=== PATIENT | male | born 1960 | race Caucasian/White ===

== ENCOUNTER → 2016-12-22 | Outpatient (CLI) | payer BC ==
[~2016-12-22] MED LIST: AMO500 PO; ASPI-781 PO; GABA100C14 PO; HYDR-902 PO; NOVO3I SC; NOVOLOG INSULIN PUMP SQ
--- NOTE | 2016-12-28 22:05 | HKNOTE ---
DATE OF SERVICE: 12/22/2016 The patient comes for preoperative evaluation. He is scheduled to have a right knee replacement on 12/23/2016. He has been cleared for surgery by Dr. Garett Waddell. I spoke with Dr. Waddell on t he phone today about him. He has not given any blood for autotransfusion. He understands the risks associated with using hospital blood. He is agreeable to using hospital blood if needed. Numerous questions were asked and answered. He has read my booklet on knee arthritis and knee replacement s urgery. He comes in with his . Dictated By: MICHELE CHAVEZ/NTS Conf#: [id number] DID#: [id number]
== END | disposition home or self-care (01) ==
LOC: HKI 13:27
DX: M25.561 Pain in right knee (principal); M17.11 Unilateral primary osteoarthritis, right knee
CPT/HCPCS: G0463

== ENCOUNTER 2016-12-23 05:54 | Inpatient (IN) | payer BC ==
[2016-12-22 10:40] VITALS: BMI 27.5
[2016-12-23] VITALS (32 sets, daily range): BP systolic 98–147; BP diastolic 55–90; PULSE 72–90; RESP 10–22; Ht 182.9 cm; Wt 92.3 kg
[~2016-12-23] VITALS: Ht 182.9 cm; Wt 92.3 kg
[2016-12-23] MEDS ORDERED: LANSOPRAZOLE 30 MG CAP PO ONE (06:00)
[2016-12-23] MEDS ORDERED: KNEE PAIN COCKTAIL VANCO INJ SCH ×6 (06:00)
[2016-12-23] MEDS ORDERED: ACETAMINOPHEN 1000MG/100ML IV 100 ML IVPB ONE (06:00)
[2016-12-23] MEDS ORDERED: TRANEXAMIC ACID IVPB ONE (06:00)
[2016-12-23] MEDS ORDERED: oxyCODONE (CR) 10 MG TAB [oxyCONTIN] PO ONE (06:00)
[2016-12-23] MEDS ORDERED: SOD CHLORIDE 0.9% IVPB ONE (06:00)
[2016-12-23] MEDS ORDERED: DEXAMETHASONE 4 MG/ML 1 ML INJ IV ONE (06:00)
[2016-12-23] MEDS ORDERED: LACTATED RINGER'S 1,000 ML IV* SCH (06:00)
[2016-12-23] MEDS ORDERED: VANCOMYCIN 1 GM (PMX) 250 ML IVPB ONE (06:00)
[2016-12-23] MEDS ORDERED: CELECOXIB 200 MG CAP PO ONE (06:00)
[2016-12-23] MEDS ORDERED: ONDANSETRON 4 MG INJ IV ONE (06:00)
--- NOTE | 2016-12-23 06:42 | HPN ---
Date/Time of Note Date/Time of Note DATE: 12/23/16 TIME: 06:42 Interval H&P Admission Note Pt. seen H&P reviewed: No system changes JANINA CONTEH PA-C Dec 23, 2016 06:42
[2016-12-23] MEDS ORDERED: NOVOLOG INSULIN PUMP SQ (06:49)
[2016-12-23] MEDS ORDERED: ROCURONIUM 50 MG INJ ONE ×2 (07:00→07:26)
[2016-12-23] MEDS ORDERED: BUPIVACAINE 0.25%/EPI (SDV) 30 ML INJ ONE (07:07)
[2016-12-23] MEDS ORDERED: METHYLENE BLUE 1% 10 ML INJ ONE (07:07)
[2016-12-23] MEDS ORDERED: POLYMYXIN B 500000 UNIT INJ ONE (07:07)
[2016-12-23] MEDS ORDERED: MIDAZOLAM 1 MG/ML 2 ML INJ ONE ×2 (07:08)
[2016-12-23] MEDS ORDERED: TOBRAMYCIN 1.2 GM POWDER ONE (07:08)
[2016-12-23] MEDS ORDERED: VANCOMYCIN 1 GM INJ ONE (07:08)
[2016-12-23] MEDS ORDERED: ROPIVACAINE 0.2% 100 ML ONE (07:08)
[2016-12-23] MEDS ORDERED: PROPOFOL 100 ML ONE (07:26)
[2016-12-23] MEDS ORDERED: ROPIVACAINE 0.5 % 30 ML VIAL ONE (07:26)
[2016-12-23] MEDS ORDERED: SOD CHLORIDE 0.9% IRR SCH ×2 (07:30)
[2016-12-23] MEDS ORDERED: TRANEXAMIC ACID IRR SCH ×2 (07:30)
[2016-12-23] MEDS ORDERED: PHENYLephrine (100 MCG/ML) 5ML SYG ONE (07:54)
[2016-12-23] MEDS ORDERED: BACITRACIN 50000 UNITS INJ IRR ONE (08:48)
[2016-12-23] MEDS ORDERED: DEXAMETHASONE 4 MG/ML 1 ML INJ ONE (10:03)
[2016-12-23] MEDS ORDERED: KETOROLAC 30 MG INJ ONE (10:03)
[2016-12-23] MEDS ORDERED: METOCLOPRAMIDE 10 MG INJ ONE (10:03)
[2016-12-23] MEDS ORDERED: ONDANSETRON 4 MG INJ ONE (10:03)
[2016-12-23] MEDS ORDERED: FAMOTIDINE 20 MG INJ ONE (10:04)
[2016-12-23] MEDS ORDERED: MEPERIDINE 25 MG INJ IV PRN (10:30)
[2016-12-23] MEDS ORDERED: LABETALOL HCL 20MG INJ IV PRN (10:30)
[2016-12-23] MEDS ORDERED: EPHEDrine SULFATE 50 MG/5 ML SYG IV PRN (10:30)
[2016-12-23] MEDS ORDERED: morphine (1 MG/ML) 10ML SYRINGE IV PRN ×3 (10:30)
[2016-12-23] MEDS ORDERED: hydrALAzine 20 MG INJ IV PRN (10:30)
[2016-12-23] MEDS ORDERED: METOCLOPRAMIDE 10 MG INJ IV PRN (10:30)
[2016-12-23] MEDS ORDERED: ONDANSETRON 4 MG INJ IV PRN (10:30)
[2016-12-23] MEDS ORDERED: ALBUMIN HUMAN 5% 250 ML IV PRN (10:30)
[2016-12-23] MEDS ORDERED: DIPHENHYDRAMINE 50 MG INJ IV PRN (10:30)
[2016-12-23] MEDS ORDERED: HYDROmorphONE (0.2 MG/ML) 10ML SYG IV PRN ×3 (10:30)
[2016-12-23] MEDS ORDERED: NEOSTIGMINE 3 MG/3 ML SYRINGE ONE (10:43)
[2016-12-23] MEDS ORDERED: GLYCOPYRROLATE 0.4 MG INJ ONE (10:43)
[2016-12-23] MEDS: DEXTROSE 5%-LR 1,000 ML IV SCH ×2 (11:19→23:49)
[2016-12-23] MEDS ORDERED: MEPERIDINE 10 MG/ML 30 ML PCA IV PRN (11:30)
[2016-12-23] MEDS: ACETAMINOPHEN 1000MG/100ML IV 100 ML IVPB SCH ×2 (11:30→19:54)
[2016-12-23] MEDS ORDERED: NALOXONE (0.4 MG/ML) INJ IV PRN (11:30)
[2016-12-23] MEDS ORDERED: NA PHOSPHATE/BIPHOS 133 ML ENEMA PR PRN (11:30)
[2016-12-23] MEDS ORDERED: BETHANECHOL 25 MG TAB PO PRN (11:30)
[2016-12-23] MEDS ORDERED: DIPHENHYDRAMINE 50 MG INJ IM PRN (11:30)
[2016-12-23] MEDS ORDERED: oxyCODONE 5 MG TAB PO PRN (11:30)
[2016-12-23] MEDS ORDERED: SENNA/DOCUSATE NA (8.6MG/50MG) TAB PO PRN (11:30)
[2016-12-23] MEDS ORDERED: MAGNESIUM HYDROXIDE 30ML CUP PO PRN (11:30)
[2016-12-23] MEDS: ONDANSETRON 4 MG INJ IV SCH ×2 (11:30→18:23)
[2016-12-23] MEDS ORDERED: DOCUSATE SODIUM 100 MG CAP PO ONE (11:30)
[2016-12-23] MEDS ORDERED: COUMADIN NOTE XX SCH (11:30)
[2016-12-23] MEDS ORDERED: BISACODYL 10 MG SUPP PR PRN (11:30)
[2016-12-23] MEDS ORDERED: ASPIRIN (EC) 325 MG TAB PO ONE (11:30)
[2016-12-23] MEDS ORDERED: HYDROmorphONE 0.2 MG/ML PCA IV PRN (11:30)
[2016-12-23] MEDS ORDERED: BACITRACIN 50000 UNITS INJ ONE (11:52)
[2016-12-23] MEDS: CEFAZOLIN 1 GM/50 ML (PMX) 50 ML IVPB SCH ×2 (12:30→19:08)
--- NOTE | 2016-12-23 12:43 | OPR ---
DATE OF OPERATION: 12/23/2016 DATE OF OPERATION: November 23, 2015 SURGEON: Herbert. Fatoumata MD CYBER SYSTEMS ADMINISTRATOR: Scottie Calvin ANESTHESIOLOGIST: PREOPERATIVE DIAGNOSIS: Exceedingly severe degenerative osteoarthritis of the right knee. POSTOPERATIVE DIAGNOSIS: Exceedingly severe degenerative osteoarthritis of the right knee. OPERATION PERFORMED: Total knee replacement (arthroplasty of the knee, condylar plateau, medial and lateral compartments with patella resurfacing, CPT 61216). FINDINGS AT SURGERY: The patient was found to have exceedingly severe degenerative osteoarthritis o f the right knee, far more severe than the x-rays seemed to indicate. There were huge peripheral os teophytes around the entire distal femur and the intercondylar notch was virtually overgrown with os teophytes. Intraoperative photographs were taken to show the extent of the arthritis. The patient's bone quality was extremely good. JUSTIFICATION FOR SURGERY: The knee was found to have end-stage osteoarthritis. The patient is a v vineet active 56-year-old male whose lifestyle is markedly affected by the arthritic knee. An extensiv e course of conservative care has been tried prior to embarking on the knee replacement operation. There can be no reasonable expectation that any further conservative treatment will make any improve ment to this patient's pain level and lifestyle. The risks and complications of the surgery were di scussed with the patient at the preoperative visit as well as the risks and possible complications o f blood transfusion using hospital blood. The patient is agreeable to using hospital blood if neede d. DESCRIPTION OF PROCEDURE: The patient was given intravenous antibiotics 1 hour prior to surgery. A n epidural anesthetic was initiated in the ICU holding area. The patient was taken to the operating room and given a light general anesthetic. The leg, foot, and ankle were prepared and draped in th e usual sterile fashion. The center of the ankle was marked at the midpoint between the 2 malleoli with a sterile marking pen. A tourniquet around the thigh was inflated to 225 mmHg after the leg cheatham d been exsanguinated using an Esmarch bandage. The tourniquet was inflated at the initiation of pro cedure for a short period and was then again reinflated at the time of cementing the components part s. The total tourniquet time was approximately 50 minutes. A longitudinal incision was made over the anterior aspect of the knee. The incision extended from t he tibial tubercle to a point just above the patella. The medial capsule was exposed by sharp and b aiyana dissection, and was incised 1/4 inch medial to the patella. A marking stitch was set on each s sophia of the incision at the midpoint of the capsule so as to enable accurate reapproximation at the e nd of the operation. A vastus split was made in the vastus medialis extending from the superior nubia e of the patella for approximately 5 cm between the line with the muscle fibers. The ends of the mu scle split at the patella were marked with a marking stitch on each side for later accurate reapprox imation. The patella was reflected laterally and osteophytes around the rim of the patella were rem yessica. Osteophytes along the lateral femoral condyle were removed so as to facilitate lateral reflec tion of the patella. Posteromedial osteophytes were removed on the lateral side as well, so as to f ree up the lateral collateral ligament. Medial femoral osteophytes and posteromedial femoral osteop hytes were also removed at this time. This allowed for the knee to be brought into a more normal al ignment. A segment of bone was cut from the articular surface of the patella using a caliper to det ermine the exact thickness to be removed. The remaining thickness of the patella was 18 mm. (Note that the femoral condyle was extremely hypoplastic, so we wanted to retain as much patella thickness as possible to maintain the anterior joint space.)The knee was flexed, and the patella was displace d laterally without eversion. Osteophytes in the femoral notch were removed. The remnants of the m edial and lateral menisci were excised and the cruciate ligaments were excised. The medial collater al ligament was elevated as an osteo-periosteal flap from the proximal tibia. The distal end of the medial collateral ligament remained attached to the tibia throughout the operation. The tibia was retracted forward with Hohmann retractor, inserted posterior to the midpoint of the proximal tibia. The tibial jig was set in place in such a way as to align longitudinally with the anterior tibial s pine, with the junction of the middle and medial 2/3 of the patella tendon, and with the posterior i ntercondylar eminence of the tibia. An AP and lateral x-ray was obtained with the alignment jig in place. This showed that the alignment was satisfactory after some slight adjustments were made. Th e posterior slope of the tibia was set at 6 degrees. The tibial cutting block was attached to the p roximal tibia with 2 Steinmann pins. An external alignment yoli was placed on the cutting block to c onfirm the alignment of the cutting block. An Tank Wing feeler gauge was now placed on the superio r aspect of the cutting block to further confirm the posterior slope of the tibia and the depth of t he cut to be made. An oscillating saw was used to remove an appropriate amount of bone from the pro ximal tibia with the healthy side being used to measure the cutting depth. The lateral femoral cond yle of the distal femur was measured to determine the appropriate size for the femoral component. T he anterior condyle of the femur was partially removed with a rongeur. A medium-sized cutting block was attached to the distal femur with 2 Steinmann pins through the pin holes in the block. The ext ernal alignment jig of this cutting block was lined up with the anterior surface of the femur and a central intercondylar hole for the intramedullary yoli was drilled through the hole in the alignment block. The block was removed. A long Waterpik nozzle was used to flush fat from the intramedullary canal. The appropriately sized cutting block was now attached to the femur by means of an intramed ullary yoli. The linking guide was inserted into the slot in the base of the femoral cutting block w ith the knee set at 90 degrees of flexion and with the linking guide set flush with the proximal tib ial cut in order to set the appropriate rotational alignment on the femoral cutting block. Ligament balance was checked at this point and was found to be very satisfactory. Once the rotational align ment had been determined, and the ligaments found to be balanced, the femoral cutting block was secu red to the distal femur with 2 Steinmann pins. The anterior and posterior cuts of the distal femur were made off the femoral cutting block. The cutting block was removed and a spacer block was used to measure the flexion gap which was found to be 15 mm. The same spacer block size without the femoral element was used with the leg in extension to determi ne the amount of distal femur to be removed in the transverse plane. A -degree distal cutting block was now set on the femoral intramedullary yoli, and the yoli was inserted into the intramedulla ry canal. The appropriate amount of bone to be removed was determined. The femoral cutting block w as pinned to the anterior surface of the femur with 2 Steinmann pins. The appropriate amount of bon e was resected off the distal femur to give an extension gap equal to the thickness of the flexion g ap. The cut needed to be repeated after initial cut in order to produce an extension gap the same s ize as the flexion gap. By using the appropriate cutting blocks, the rest of the femoral cuts were made. The femoral trial component was installed and was found to fit perfectly. The femoral trial component was removed. T he proximal tibia was sized, and the appropriate tibial tray selected. The central fixation hole in the tibia was made using the tibial tray template and the appropriate instruments. The femoral and tibial trials and the trial tibial insert were installed, and the patella was prepared to accept th e 35 mm patellar dome component. The trial components were all removed. The tourniquet was inflate d. Soft tissues around the knee, especially the posterior capsule, were injected with a mixture of Naropin, Toradol, morphine, and clonidine. The cut surfaces of the bones were cleaned with pulsatil e Water Jet lavage and thoroughly dried. Sclerotic bone surfaces were drilled with a 1/8-inch drill . The tibial trial component was installed with methyl methacrylate cement followed by the femoral component and finally the patellar component. Cement was used on all 3 components. The cement was finger packed into the cut surfaces of the bone and pressurized with a rubber dam in order to get go od interdigitation of the cement into the bone. A lateral x-ray of the knee was obtained with the [address] and this showed that the knee was in full extension. Once the cement was hard, all extraneous cement was removed. The cut edges of the medial capsule were held together at the m idpoint with a towel clip, and the knee was put through a full range of motion. The patella was fou nd to track satisfactorily. A lateral release was not required. At this point, the patella was fou nd to track very well in the patellar groove of the femoral component. The knee was frequently irrigated with normal saline containing antibiotics with pulsatile lavage th roughout the entire operation as a prophylactic measure against infection. Once the cement was hard , the tourniquet was released. Bleeding points were cauterized. The total tourniquet time was appr oximately 50 minutes. The patient's vital signs remained stable throughout the operation. The permanent rotating bearing was installed. Superficial and deep Hemovac drains were set in place . The wound was closed using interrupted Vicryl on the capsule with FiberWire used at strategic poi nts such as the attachment of the distal ends of the vastus medialis at the split, and the tibial te ndon was also attached to the osteo-periosteal flap with FiberWire. The rest of the medial capsule was closed with interrupted Vicryl. A subcuticular stitch was inserted and anny were used on the skin. The usual sterile dressings were applied. A Cas-Rose compression dressing was applied a fter a sterile cooling pad had been set in place against the deep tissues by sterile cast padding. The patient's condition at the end of the procedure was satisfactory. Vital signs remained stable t hroughout the operation. The patient returned to the recovery room in stable condition. X-rays wer e obtained in the recovery room. Calf pumps were applied to both legs in the operating room. There were no problems or complications as far as we know. The sponge and instrument counts were correct . COMPONENT INFORMATION: KNEE IMPLANT TYPE: LCS. FEMORAL COMPONENT SIZE: Osteonics plus. TIBIAL COMPONENT SIZE: 5 PATELLAR COMPONENT SIZE: 35 mm patellar dome. TIBIAL INSERT: 15 mm deep dish posterior stabilized . IMPLANT SENIOR PRODUCER: [employer] [place], [place]. TOTAL TOURNIQUET TIME: Approximately 50 minutes. TOTAL BLOOD LOSS: Approximately 150 mL. Dictated By: MICHELE CHAVEZ/THOMAS Conf#: [id number] DID#: [id number]
--- NOTE | 2016-12-23 13:07 | RADRPT ---
PROCEDURE: Intraoperative imaging of the right knee with fluoroscopy. CLINICAL INDICATION: Right knee pain. Intraoperative. TECHNIQUE: 2 images of the right knee were obtained in the operating room with an image intensifie r. No radiologist was in attendance. 3.8 seconds of fluoroscopy time was used. COMPARISON: Intraoperative imaging done earlier the same day. FINDINGS: Images demonstrate components of a total right knee arthroplasty. IMPRESSION: 1. Intraoperative imaging of the right knee. RPTAT: QQ .Denis Crowe MD, MD Date Time Electronically viewed and signed by .Denis Crowe MD, MD on 12/23/2016 13:07 .R/
--- NOTE | 2016-12-23 13:08 | RADRPT ---
PROCEDURE: Right knee radiograph. CLINICAL INDICATION: Right knee pain. Intraoperative. TECHNIQUE: Single lateral intraoperative image. COMPARISON: 04/01/2016. FINDINGS: There are components of a total right knee arthroplasty. IMPRESSION: 1. Satisfactory intraoperative imaging of the right knee. RPTAT: QQ .Denis Crowe MD, Date Time Electronically viewed and signed by .Denis Crowe MD, on 12/23/2016 13:08 .R/
--- NOTE | 2016-12-23 13:10 | RADRPT ---
PROCEDURE: Right knee radiographs. CLINICAL INDICATION: Right knee pain. Postop. TECHNIQUE: Two views. Frontal and lateral. COMPARISON: Intraoperative imaging done earlier the same day. FINDINGS: There is no fracture or dislocation. Anterior skin anny and surgical drains are noted. There is gas in the soft tissues from the rece nt surgery. There is a total right knee constrained arthroplasty which appears satisfactory. There is no lytic or blastic lesion. There is no joint effusion. IMPRESSION: 1. Satisfactory postoperative appearance of the right knee. RPTAT: QQ .Denis Crowe MD, MD Date Time Electronically viewed and signed by .Denis Crowe MD, MD on 12/23/2016 13:09 .R/
[2016-12-23] MEDS ORDERED: TRANEXAMIC ACID 920 MG in SOD CHLORIDE 0.9% 100 ML IVPB ONE ×2 (15:30→18:30)
[2016-12-23] MEDS ORDERED: INSULIN DETEMIR [LEVEMIR] 3ML CART SC SCH (17:25)
[2016-12-23] MEDS: ACCU-CHEK XX SCH ×4 (17:25→21:00)
[2016-12-23] MEDS ORDERED: INSULIN ASPART [NOVOLOG] 3 ML PEN SC SCH (17:55)
[2016-12-23] MEDS ORDERED: DEXTROSE 50% 50 ML SYRINGE IV PRN ×2 (18:00)
[2016-12-23] MEDS ORDERED: GLUCAGON 1 MG INJ IM PRN (18:00)
[2016-12-23] MEDS ORDERED: GLUCOSE GEL 15 GRAM TUBE PO PRN ×2 (18:00)
[2016-12-23] MEDS ORDERED: GLUCOSE GEL 15 GRAM TUBE BUCCAL PRN (18:00)
[2016-12-23] MEDS: oxyCODONE 5 MG TAB PO PRN (18:36)
[2016-12-23] MEDS ORDERED: NOVOLOG INSULIN PUMP SC SCH (19:00)
--- NOTE | 2016-12-23 22:13 | CONS ---
Date/Time of Note Date/Time of Note DATE: 12/23/16 TIME: 21:53 Assessment/Plan Assessment/Plan Chief Complaint/Hosp Course Clinically stable after surgery. Blood Glucose levels suboptimal. Problems: (1) Status post total right knee replacement Status: Acute Comment: Clinically stable. Post op management per Dr. Potter's protocol. (2) Osteoarthritis Status: Chronic Qualifiers: (3) Diabetes mellitus type 1 Status: Chronic Comment: Suboptimal glycemic control after surgery may be due to corticosteroid given as part of surgical protocol. Will have patient give corrections via insulin pump. Will optimize use and management of insulin pump while patient hospitalized. Qualifiers: Qualified Code: E10.9 - Type 1 diabetes mellitus without complication Additional Assessment/Plan Diabetes Education. Insulin Pump Management to optimize pump use and glycemic control. Thank you for asking me to participate in this patient's care. Consultation Date/Type/Reason Admit Date/Time Dec 23, 2016 at 05:54 Date of Consultation: Dec 23, 2016 Type of Consultation: Internal Medicine/ Endocrine Reason for Consultation Diabetes Management Referring Provider: MICHELE POTTER MD Hx of Present Illness 56 year old man with 20 year history of Type 1 Diabetes Mellitus. Patient suffers from osteoarthritis and was admitted today for a Right Total Knee replacement after failing medical management. I have been asked to see this patient in consultation to assist with this patient's diabetes management as well as any post operative medical issues that may arise. 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 Lives with . Exam/Review of Systems Vital Signs Vitals Vital Signs Date Time Temp Pulse Resp B/P Pulse Ox O2 Delivery O2 Flow Rate FiO2 12/23/16 19:28 98.7 116 22 124/77 95 12/23/16 18:30 Room Air 12/23/16 11:41 6.0 Exam Constitutional: alert, oriented, well developed Psych: no complaints Head: atraumatic, normocephalic Eyes: EOMI, PERRL, nl conjunctiva ENMT: mucosa pink and moist Neck: non-tender, supple Respiratory: clear to auscultation, normal air movement Cardiovascular: nl pulses, regular rate and rhythm Gastrointestinal: nl liver, spleen, non-tender, soft Musculoskeletal: nl extremities to inspection Extremities: normal pulses Neurological: 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 II-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 intact, nl mental status, nl speech, nl strength Skin: nl turgor Results POC glucose reviewed Results 24 hrs Laboratory Tests Test 12/23/16 06:15 12/23/16 11:23 12/23/16 11:54 12/23/16 12:27 Bedside Glucose 193 291 H 282 H 336 H Test 12/23/16 15:33 12/23/16 17:49 12/23/16 20:19 Bedside Glucose 328 H 252 H 263 H Medications Medications Current Medications Dextrose/Lactated Ringer's (D5-Lr) 1,000 ml @ 80 mls/hr [id number] IV ; Start 12/23 at 11:19 Hydromorphone HCl (Dilaudid SALES REVIEW CLERK) Q4PCA PRN IV SEVERE PAIN 8-10; Start 12/23/16 at 11:30; Stop 12/24/16 at 11:29 Meperidine HCl (Demerol SALES REVIEW CLERK) Q4PCA PRN IV SEVERE PAIN 8-10; Start 12/23/16 at 11:30; Stop 12/24/16 at 11:29 Oxycodone HCl (Roxicodone) 20 mg Q3H PRN PO PAIN LEVEL 8-10 Last administered on 12/23/16 18:36; Admin Dose 20 MG; Start 12/23/16 at 11:30 Oxycodone HCl (Roxicodone) 10 mg Q3H PRN PO PAIN LEVEL 4-7; Start 12/23/16 at 11 :30 Oxycodone HCl 5 mg 5 mg Q3H PRN PO PAIN LEVEL 1-3; Start 12/23/16 at 11:30 Acetaminophen (Ofirmev 1000mg/ 100ml Iv) 100 ml @ 400 mls/hr Q8H IVPB Last administered on 12/23/16 19:54; Admin Dose 400 MLS/HR; Start 12/23/16 at 11:30; Stop 12/25/16 at 03:44 Zolpidem Tartrate (Ambien) 5 mg HS PRN PO INSOMNIA; Start 12/23/16 at 11:30 Ondansetron HCl 4 mg 4 mg Q6H IV Last administered on 12/23/16 18:23; Admin Dose 4 MG; Start 12/23/16 at 11:30; Stop 12/24/16 at 05:31 Cefazolin Sodium (Ancef 1 Gm/50 ml (Pmx)) 50 ml @ 100 mls/hr Q8H IVPB Last administered on 12/23/16 19:08; Admin Dose 100 MLS/HR; Start 12/23/16 at 11:30; Stop 12/24/16 at 03:59 Miscellaneous Information (Note) NOTE XX ; Start 12/23/16 at 11:30 Aspirin (Ecotrin) 325 mg BID PO ; Start 12/24/16 at 09:00 Celecoxib (Celebrex) 200 mg BID PO ; Start 12/24/16 at 09:00 Dexamethasone (Decadron) 4 mg DAILY@07 IV ; Start 12/24/16 at 07:00; Stop at 06:59 Pantoprazole (Protonix Tab) 40 mg DAILY@06 PO ; Start 12/25/16 at 06:00 Docusate Sodium/ Ferrous Fumarate (Abimbola-Sequels) 1 tab BID PO ; Start 12/24/16 at 09:00 Docusate Sodium (Colace) 200 mg BID PO ; Start 12/24/16 at 09:00; Stop 12/27/16 at 08:59 Simethicone (Mylicon) 80 mg TID PRN PO DISTENSION/GAS/BLOATING; Start 12/23/16 at 11:30 Senna/Docusate Sodium (Senokot-S) 2 tab BID PRN PO CONSTIPATION; Start 12/23/16 at 11:30 Magnesium Hydroxide (Milk Of Mag) 30 ml HS PRN PO CONSTIPATION; Start 12/23/16 at 11:30 Bisacodyl (Dulcolax Supp) 10 mg DAILY PRN ND CONSTIPATION; Start 12/23/16 at 11: 30 Sodium Biphosphate/ Sodium Phosphate (Fleet Enema) 133 ml DAILY PRN ND CONSTIPATION; Start 12/23/16 at 11:30 Diphenhydramine HCl (Benadryl) 25 mg Q4H PRN IM ITCHING OR RASH; Start 12/23/16 at 11:30 Ketorolac Tromethamine (Toradol) 15 mg DAILY@06 PRN INJ ADMINSTER BY SURGEON ONLY; Start 12/24/16 at 06:00; Stop 12/28/16 at 05:59 Bupivacaine HCl/ Epinephrine Bitart (Marcaine 0.25%/ Epi (Sdv) 30 ml) 20 ml DAILY@06 PRN INJ ADMINSTER BY SURGEON ONLY; Start 12/24/16 at 06:00; Stop at 05:59 Naloxone HCl (Narcan) 0.2 mg Q2M PRN IV DECREASED REPIRATORY RATE; Start at 11:30 Miscellaneous Information (* Miscellaneous Pharmacy Order) patient to use pre- program... ONCE XX ; Start 12/23/16 at 17:30 Diagnostic Test (Pha) (Accu-Chek) 1 ea [id number] XX Last administered on t 19:55; Admin Dose 1 EA; Start 12/23/16 at 17:25 Miscellaneous Information 1 ea NOTE XX ; Start 12/23/16 at 18:00 Glucose (Glutose) 15 gm Q15M PRN PO DECREASED GLUCOSE; Start 12/23/16 at 18:00 Glucose (Glutose) 22.5 gm Q15M PRN PO DECREASED GLUCOSE; Start 12/23/16 at 18:00 Dextrose (D50w Syringe) 25 ml Q15M PRN IV DECREASED GLUCOSE; Start 12/23/16 at 18:00 Dextrose (D50w Syringe) 50 ml Q15M PRN IV DECREASED GLUCOSE; Start 12/23/16 at 18:00 Glucagon (Glucagen) 1 mg Q15M PRN IM DECREASED GLUCOSE; Start 12/23/16 at 18:00 Glucose (Glutose) 15 gm Q15M PRN BUCCAL DECREASED GLUCOSE; Start 12/23/16 at 18: 00 Procedures Procedures S/P Right Total Knee Replacement. SAVANAH COLLINS MD Dec 23, 2016 22:04
[2016-12-23] MEDS: ZOLPIDEM 5 MG TAB PO PRN (22:22)
[2016-12-24] MEDS: ONDANSETRON 4 MG INJ IV SCH ×2 (00:10→05:30)
[2016-12-24] MEDS: oxyCODONE 5 MG TAB PO PRN ×4 (00:10→19:50)
[2016-12-24] MEDS: CEFAZOLIN 1 GM/50 ML (PMX) 50 ML IVPB SCH (02:25)
[2016-12-24] MEDS: ACETAMINOPHEN 1000MG/100ML IV 100 ML IVPB SCH ×3 (03:21→19:52)
[2016-12-24 04:57] LABS: ADD SCAN DIFF NO
[2016-12-24 05:27] LABS: BASOPHILS % 0.2 % (0.0-2.0); EOSINOPHILS % 0.1 % (0.0-7.0); HEMATOCRIT 34.1 % (42.0-52.0); HEMOGLOBIN 11.7 g/dl (14.0-18.0); LYMPHOCYTES # 1.7 10^3/ul (0.8-2.9); LYMPHOCYTES % 10.6 % (15.0-51.0); MEAN CORPUSCULAR HEMOGLOBIN 31.4 pg (29.0-33.0); MEAN CORPUSCULAR HGB CONC 34.3 g/dl (32.0-37.0); MEAN CORPUSCULAR VOLUME 91.4 fl (82.0-101.0); MEAN PLATELET VOLUME 11.3 fl (7.4-10.4); MONOCYTE # 1.4 10^3/ul (0.3-0.9); MONOCYTES % 8.6 % (0.0-11.0); NEUTROPHIL # 12.8 10^3/ul (1.6-7.5); PLATELET COUNT 270 10^3/UL (140-415); RED BLOOD COUNT 3.73 10^6/ul (4.70-6.10); RED CELL DISTRIBUTION WIDTH 11.8 % (11.5-14.5)
[2016-12-24 05:36] VITALS: BP 111/63; PULSE 89; RESP 18
[2016-12-24] MEDS ORDERED: KETOROLAC 15 MG INJ INJ PRN (06:00)
[2016-12-24] MEDS ORDERED: BUPIVACAINE 0.25%/EPI (SDV) 30 ML INJ INJ PRN (06:00)
[2016-12-24] MEDS ORDERED: DEXAMETHASONE 4 MG/ML 1 ML INJ IV SCH (07:00)
[2016-12-24] MEDS: ACCU-CHEK XX SCH ×10 (07:30→21:16)
[2016-12-24 07:46] VITALS: BP 128/76; RESP 18
--- NOTE | 2016-12-24 07:54 | PN ---
Date/Time of Note Date/Time of Note DATE: 12/24/16 TIME: 07:51 Assessment/Plan VTE Prophylaxis VTE Prophylaxis Intervention: ambulation, anti-embolic stocking, SCD's, other ( Aspirin 325 mg twice daily.) Lines/Catheters IV Catheter Type (from Nrsg): Peripheral IV Sood in Place (from Nrs): Yes Assessment/Plan Assessment/Plan -Hemovac Removed Today. 360 cc output. -Pain Cocktail Given -Pain Meds as needed -Dress change performed today -OOB with PT -ASA/SCDs for DVT Prophylaxis -Continue monitoring with Internal Medicine -Patient Stable -Discussed with nurse that patient may discontinue his Decadron given unstable blood sugar due to pre-existing type 2 diabetes. Will continue following with internal medicine for monitoring of glucose. Subjective 24 Hr Interval Summary 56-year-old male postop day 1 status post right total knee arthroplasty. Denies any pain complaints of the right knee. Denies any chest pain/tightness, shortness of breath or calf pain. Patient had decreased sensation due to strong epidural given prior to surgery. Was not able to perform physical therapy yesterday. Throughout the day sensation has returned as far as functionality to the right lower extremity. Patient had difficulty voiding and Sood catheter was placed. After placement of Sood catheter urine was produced. Sood catheter was removed and patient has been voiding on his own. Denies any ongoing complication. Patient continues to do well. Constitutional: no complaints Pain Control: well controlled Exam/Review of Systems Vital Signs Vitals Vital Signs Date Time Temp Pulse Resp B/P Pulse Ox O2 Delivery O2 Flow Rate FiO2 12/24/16 07:46 97.9 81 18 128/76 97 12/23/16 18:30 Room Air 12/23/16 11:41 6.0 Intake and Output 12/23/16 12/23/16 12/24/16 15:00 23:00 07:00 Intake Total 1618.4 ml 770 ml 1418.2 ml Output Total 100 ml 800 ml 1470 ml Balance 1518.4 ml -30 ml -51.8 ml Exam Free Text/Dictation -Hemovac: Intact. 360 cc output -Pain Cocktail Drains: Intact -Incision: Clean, Dry and Intact without any redness or drainage -01/22 Tibialis Anterior, EHL Gastrocnemius/Soleus and Peroneals -Patient is able to achieve full active extension with flexion up to 110 today. -Normal Sensation -Palpable DP/PT, Capillary Refill <2 secs -No Distal Edema -Negative Zack Sign/No calf pain -Toes Freely Movable Constitutional: alert, oriented, well developed Results Result Diagram: 12/24/16 0438 JANINA CONTEH PA-C Dec 24, 2016 07:54
[2016-12-24] MEDS: CELECOXIB 200 MG CAP PO SCH ×2 (09:58→21:11)
[2016-12-24] MEDS: FERROUS FUMARATE (SR) TAB PO SCH ×2 (09:58→21:11)
[2016-12-24] MEDS: DOCUSATE SODIUM 100 MG CAP PO SCH ×2 (09:58→21:11)
[2016-12-24] MEDS: ASPIRIN (EC) 325 MG TAB PO SCH ×2 (09:58→21:11)
[2016-12-24] MEDS: NOVOLOG INSULIN PUMP SC SCH ×3 (11:10→21:00)
[2016-12-24] MEDS: DEXTROSE 5%-LR 1,000 ML IV SCH (12:19)
--- NOTE | 2016-12-24 18:13 | CONS ---
Date/Time of Note Date/Time of Note DATE: 12/24/16 TIME: 18:06 Assessment/Plan Assessment/Plan Chief Complaint/Hosp Course Clinically stable after surgery. Blood Glucose levels suboptimal. Problems: (1) Osteoarthritis Status: Chronic Qualifiers: Osteoarthritis location: knee Laterality: right (2) Diabetes mellitus type 1 Status: Chronic Comment: Suboptimal glucose control secondary to increased insulin resistance from glucocorticosteroid given during surgery. Patient changed site of insulin pump infusion site with some improvement in glucose control. Instructed patient to give corrections for blodd glucose greater than 180mg/dl. Qualifiers: Diabetes mellitus complication status: without complication Qualified Code : E10.9 - Type 1 diabetes mellitus without complication (3) Status post total right knee replacement Status: Acute Additional Assessment/Plan If blood glucose levels continue above target goal 100-180mg/dl will add a dose of Humulin N. Cont'd Hospitalization Reason: Post op day #1 Consultation Date/Type/Reason Admit Date/Time Dec 23, 2016 at 05:54 Initial Consult Date 12/23/16 Type of Consultation: Internal Medicine/ Endocrine Referring Provider: MICHELE POTTER MD 24 HR Interval Summary Free Text/Dictation Patient feels good. Walked with PT today without the use of crutches and walker. Constitutional: improved, other Exam/Review of Systems Vital Signs Vitals Vital Signs Date Time Temp Pulse Resp B/P Pulse Ox O2 Delivery O2 Flow Rate FiO2 12/24/16 07:46 97.9 81 18 128/76 97 12/23/16 18:30 Room Air 12/23/16 11:41 6.0 Intake and Output 12/23/16 12/23/16 12/24/16 15:00 23:00 07:00 Intake Total 1618.4 ml 770 ml 1418.2 ml Output Total 100 ml 800 ml 1470 ml Balance 1518.4 ml -30 ml -51.8 ml Exam Constitutional: alert, oriented, well developed Psych: no complaints Head: normocephalic Eyes: EOMI, PERRL, nl conjunctiva, nl sclera ENMT: mucosa pink and moist Neck: supple Respiratory: clear to auscultation Cardiovascular: regular rate and rhythm Gastrointestinal: soft Musculoskeletal: nl extremities to inspection Extremities: normal pulses Results POC glucose reviewed Result Diagram: 12/24/16 0438 Results 24 hrs Laboratory Tests Test 12/23/16 20:19 12/23/16 22:17 12/24/16 04:38 12/24/16 07:59 Bedside Glucose 263 H 223 H 185 White Blood Count 16.0 H Red Blood Count 3.73 L Hemoglobin 11.7 L Hematocrit 34.1 L Mean Corpuscular Volume 91.4 Mean Corpuscular Hemoglobin 31.4 Mean Corpuscular Hemoglobin Concent 34.3 Red Cell Distribution Width 11.8 Platelet Count 270 Mean Platelet Volume 11.3 H Neutrophils % 80.0 H Lymphocytes % 10.6 L Monocytes % 8.6 Eosinophils % 0.1 Basophils % 0.2 Nucleated Red Blood Cells % 0.0 Neutrophils # 12.8 H Lymphocytes # 1.7 Monocytes # 1.4 H Eosinophils # 0.0 Basophils # 0.0 Nucleated Red Blood Cells # 0.0 Test 12/24/16 10:19 12/24/16 12:37 12/24/16 14:06 12/24/16 17:22 Bedside Glucose 287 H 311 H 308 H 195 Medications Medications Current Medications Oxycodone HCl (Roxicodone) 20 mg Q3H PRN PO PAIN LEVEL 8-10 Last administered on 12/24/16 15:17; Admin Dose 20 MG; Start 12/23/16 at 11:30 Oxycodone HCl (Roxicodone) 10 mg Q3H PRN PO PAIN LEVEL 4-7; Start 12/23/16 at 11 :30 Oxycodone HCl 5 mg 5 mg Q3H PRN PO PAIN LEVEL 1-3; Start 12/23/16 at 11:30 Acetaminophen (Ofirmev 1000mg/ 100ml Iv) 100 ml @ 400 mls/hr Q8H IVPB Last administered on 12/24/16 12:17; Admin Dose 400 MLS/HR; Start 12/23/16 at 11:30; Stop 12/25/16 at 03:44 Zolpidem Tartrate (Ambien) 5 mg HS PRN PO INSOMNIA Last administered on 22:22; Admin Dose 5 MG; Start 12/23/16 at 11:30 Miscellaneous Information (Note) NOTE XX ; Start 12/23/16 at 11:30 Aspirin (Ecotrin) 325 mg BID PO Last administered on 12/24/16 09:58; Admin Dose 325 MG; Start 12/24/16 at 09:00 Celecoxib (Celebrex) 200 mg BID PO Last administered on 12/24/16 09:58; Admin Dose 200 MG; Start 12/24/16 at 09:00 Pantoprazole (Protonix Tab) 40 mg DAILY@06 PO ; Start 12/25/16 at 06:00 Docusate Sodium/ Ferrous Fumarate (Abimbola-Sequels) 1 tab BID PO Last administered on 12/24/16 09:58; Admin Dose 1 TAB; Start 12/24/16 at 09:00 Docusate Sodium (Colace) 200 mg BID PO Last administered on 12/24/16 09:58; Admin Dose 200 MG; Start 12/24/16 at 09:00; Stop 12/27/16 at 08:59 Simethicone (Mylicon) 80 mg TID PRN PO DISTENSION/GAS/BLOATING; Start 12/23/16 at 11:30 Senna/Docusate Sodium (Senokot-S) 2 tab BID PRN PO CONSTIPATION; Start 12/23/16 at 11:30 Magnesium Hydroxide (Milk Of Mag) 30 ml HS PRN PO CONSTIPATION Last administered on 12/24/16 17:28; Admin Dose 30 ML; Start 12/23/16 at 11:30 Bisacodyl (Dulcolax Supp) 10 mg DAILY PRN [place] CONSTIPATION; Start 12/23/16 at 11: 30 Sodium Biphosphate/ Sodium Phosphate (Fleet Enema) 133 ml DAILY PRN [place] CONSTIPATION; Start 12/23/16 at 11:30 Diphenhydramine HCl (Benadryl) 25 mg Q4H PRN IM ITCHING OR RASH; Start 12/23/16 at 11:30 Ketorolac Tromethamine (Toradol) 15 mg DAILY@06 PRN INJ ADMINSTER BY SURGEON ONLY; Start 12/24/16 at 06:00; Stop 12/28/16 at 05:59 Bupivacaine HCl/ Epinephrine Bitart (Marcaine 0.25%/ Epi (Sdv) 30 ml) 20 ml DAILY@06 PRN INJ ADMINSTER BY SURGEON ONLY; Start 12/24/16 at 06:00; Stop at 05:59 Naloxone HCl (Narcan) 0.2 mg Q2M PRN IV DECREASED REPIRATORY RATE; Start at 11:30 Miscellaneous Information (* Miscellaneous Pharmacy Order) patient to use pre- program... ONCE XX ; Start 12/23/16 at 17:30 Diagnostic Test (Pha) (Accu-Chek) 1 ea [id number] Last administered on t 17:33; Admin Dose 1 EA; Start 12/23/16 at 17:25 Miscellaneous Information 1 ea NOTE XX ; Start 12/23/16 at 18:00 Glucose (Glutose) 15 gm Q15M PRN PO DECREASED GLUCOSE; Start 12/23/16 at 18:00 Glucose (Glutose) 22.5 gm Q15M PRN PO DECREASED GLUCOSE; Start 12/23/16 at 18:00 Dextrose (D50w Syringe) 25 ml Q15M PRN IV DECREASED GLUCOSE; Start 12/23/16 at 18:00 Dextrose (D50w Syringe) 50 ml Q15M PRN IV DECREASED GLUCOSE; Start 12/23/16 at 18:00 Glucagon (Glucagen) 1 mg Q15M PRN IM DECREASED GLUCOSE; Start 12/23/16 at 18:00 Glucose (Glutose) 15 gm Q15M PRN BUCCAL DECREASED GLUCOSE; Start 12/23/16 at 18: 00 SAVANAH COLLINS MD Dec 24, 2016 18:12
[2016-12-24 19:46] VITALS: BP 128/70; RESP 19
[2016-12-24 20:00] VITALS: BP 123/59; PULSE 88; RESP 18
[2016-12-24] MEDS: ZOLPIDEM 5 MG TAB PO PRN (21:14)
[2016-12-25] MEDS: oxyCODONE 5 MG TAB PO PRN ×2 (02:44→08:09)
[2016-12-25] MEDS: ACETAMINOPHEN 1000MG/100ML IV 100 ML IVPB SCH (03:43)
[2016-12-25 05:40] LABS: ADD SCAN DIFF NO
[2016-12-25 05:49] LABS: BASOPHIL # 0.1 10^3/ul (0.0-0.1); BASOPHILS % 0.5 % (0.0-2.0); EOSINOPHILS # 0.3 10^3/ul (0.0-0.5); EOSINOPHILS % 2.5 % (0.0-7.0); HEMATOCRIT 34.5 % (42.0-52.0); HEMOGLOBIN 11.5 g/dl (14.0-18.0); LYMPHOCYTES # 3.3 10^3/ul (0.8-2.9); LYMPHOCYTES % 31.1 % (15.0-51.0); MEAN CORPUSCULAR HEMOGLOBIN 31.2 pg (29.0-33.0); MEAN CORPUSCULAR HGB CONC 33.3 g/dl (32.0-37.0); MEAN CORPUSCULAR VOLUME 93.5 fl (82.0-101.0); MEAN PLATELET VOLUME 11.2 fl (7.4-10.4); MONOCYTES % 9.2 % (0.0-11.0); NEUTROPHILS % 56.4 % (39.0-77.0); PLATELET COUNT 219 10^3/UL (140-415); RED BLOOD COUNT 3.69 10^6/ul (4.70-6.10); WHITE BLOOD COUNT 10.6 10^3/ul (4.8-10.8)
[2016-12-25] MEDS ORDERED: PANTOPRAZOLE (EC) 40 MG TAB PO SCH (06:00)
[2016-12-25] MEDS: NOVOLOG INSULIN PUMP SC SCH (07:20)
[2016-12-25] MEDS: ACCU-CHEK XX SCH ×3 (07:47→10:05)
--- NOTE | 2016-12-25 07:59 | PN ---
Date/Time of Note Date/Time of Note DATE: 12/25/16 TIME: 07:57 Assessment/Plan VTE Prophylaxis VTE Prophylaxis Intervention: ambulation, SCD's, other (Aspirin 325 mg twice daily.) Lines/Catheters IV Catheter Type (from Nrsg): Saline Lock Sood in Place (from Nrsg): Yes Assessment/Plan Assessment/Plan -Pain Cocktail Given. Cocktail drains removed. Dermabond placed over catheter site. -Pain Meds as needed -Dress change performed today -ASA for DVT Prophylaxis x 6 weeks outpatient discussed. -Continue monitoring as outpatient on discharge -Follow-up at scheduled postop outpatient appointment or sooner if there is any issue. -Tegaderm dressings given with specific instructions to use as outpatient to keep wound dry until anny are moved around 10 days. -Patient Stable -Discharge to Home with home health Subjective 24 Hr Interval Summary 56-year-old male postop day 2 status post right total knee arthroplasty. Denies any pain complaints. Patient is up in walking, without assistive ambulatory device, throughout hallways in the hospital. Patient denies any chest pain/tightness, shortness of breath, fever chills or malaise. Patient is very pleased status post surgery. Likely discharged home today. Constitutional: no complaints Pain Control: well controlled Exam/Review of Systems Vital Signs Vitals Vital Signs Date Time Temp Pulse Resp B/P Pulse Ox O2 Delivery O2 Flow Rate FiO2 12/24/16 20:00 98.0 88 18 123/59 98 Nasal Cannula 12/23/16 11:41 6.0 Intake and Output 12/24/16 12/24/16 12/25/16 15:00 23:00 07:00 Intake Total 100 ml 1080 ml 680 ml Output Total 1150 ml 1100 ml Balance 100 ml -70 ml -420 ml Exam Free Text/Dictation -Hemovac: Removed -Pain Cocktail Drains: Intact -Incision: Clean, Dry and Intact without any redness or drainage -5/5 Tibialis Anterior, EHL Gastrocnemius/Soleus and Peroneals -Patient is able to fully extend the right knee with flexion up to 120. -Normal Sensation -Palpable DP/PT, Capillary Refill <2 secs -No Distal Edema -Negative Zack Sign/No calf pain -Toes Freely Movable Constitutional: alert, oriented, well developed Results Result Diagram: 12/25/16 0425 JANINA CONTEH PA-C Dec 25, 2016 07:59
--- NOTE | 2016-12-25 08:04 | DS ---
Date/Time of Note Date/Time of Note DATE: 12/25/16 TIME: 08:00 Discharge Summary Admission/Discharge Info Admit Date/Time Dec 23, 2016 at 05:54 Discharge Date/Time 12/25/2016 Final Diagnosis Status post right total knee arthroplasty. Patient Condition: Stable Hospital Course On the day of admission, the patient underwent right total knee arthroplasty Intraoperative complications: None Postoperative complications: None The patient was given prophylactic antibiotics and anticoagulants. On the day of surgery and first postoperative day patient was started on gait training and was taught usual restrictions following right total knee arthroplasty Suction drain removed on the first postoperative day and the dressings were changed. The wound was found to be clean and healing well. There was no sign of infection. Pain cocktail given. On the second postoperative day, patient continued with inpatient PT. Dressings were changed. Wound was found to be clean and healing well. No signs of infection. Pain cocktail given. On the day of discharge, the wound was clean and healing well; there was no sign of infection. The dressings were changed. Discharge Temperature: 97.9 Discharge White Blood Cell Count: 10.6 Discharge Hemoglobin: 11.5 The patient was discharged home with home health. Arrangements were made for visiting nurses and home health/physical therapy. Tegaderm with pad also provided for patient. Instructions given on how to use to keep wound dry while showering. Patient may discontinue use of Tegaderm with pad after anny have been removed around 10 days postoperatively. The patient will be seen in office at scheduled postoperative evaluation date given on their preoperative exam (01/13/2017 at 2:15 PM). Should patient complain of any problems prior to scheduled postoperative evaluation date, they may call into outpatient clinic to determine if they need to be scheduled at sooner appointment to be seen immediately if needed. Discharge medications: As per medication reconciliation form Diet: Same as preadmission diet. This is Janina Cohen PA-C dictating discharge summary for Dr. Anthony Ham. Home Meds Reported Medications [Novolog Insulin Pump] No Conflict Check, 2.5 SQ Q1HOUR 12/23/16 Follow-up Plan 01/13/17 at 2:15PM Pending Labs Laboratory Tests Test 12/24/16 10:19 12/24/16 12:37 12/24/16 14:06 12/24/16 17:22 Bedside Glucose 287mg/dL (70-220) 311mg/dL (70-220) 308mg/dL (70-220) 195mg/dL (70-220) Test 12/25/16 04:25 12/25/16 07:28 White Blood Count 10.610^3/ul (4.8-10.8) Red Blood Count 3.6910^6/ul (4.70-6.10) Hemoglobin 11.5g/dl (14.0-18.0) Hematocrit 34.5% (42.0-52.0) Mean Corpuscular Volume 93.5fl (82.0-101.0) Mean Corpuscular Hemoglobin 31.2pg (29.0-33.0) Mean Corpuscular Hemoglobin Concent 33.3g/dl (32.0-37.0) Red Cell Distribution Width 12.0% (11.5-14.5) Platelet Count 13703^3/UL (140-415) Mean Platelet Volume 11.2fl (7.4-10.4) Neutrophils % 56.4% (39.0-77.0) Lymphocytes % 31.1% (15.0-51.0) Monocytes % 9.2% (0.0-11.0) Eosinophils % 2.5% (0.0-7.0) Basophils % 0.5% (0.0-2.0) Nucleated Red Blood Cells % 0.0/100WBC (0.0-0.0) Neutrophils # 6.010^3/ul (1.6-7.5) Lymphocytes # 3.310^3/ul (0.8-2.9) Monocytes # 1.010^3/ul (0.3-0.9) Eosinophils # 0.310^3/ul (0.0-0.5) Basophils # 0.110^3/ul (0.0-0.1) Nucleated Red Blood Cells # 0.010^3/ul (0.0-0.0) Bedside Glucose 93mg/dL (70-220) JANINA CONTEH PA-C Dec 25, 2016 08:04
--- NOTE | 2016-12-25 08:08 | PDOCDIS ---
Discharge Instructions DIAGNOSIS Discharge Diagnosis: Status post right total knee arthroplasty. CONDITION Patient Condition: Stable HOME CARE INSTRUCTIONS: Diet Instructions: RegularSpecial Diet: RD ACTIVITY: Activity Restrictions: Slowly Increase Activity Rest between Activity Avoid heavy lifting Do not Drive Do not operate Power Tool Avoid Heavy Housework Weight Bearing Special Exercises Bathing Restrictions: Shower (with Tegaderm with Pad. May stop after anny removed around 10 days.) FOLLOW UP/APPOINTMENTS Appointments 01/13/2017 JANINA CONTEH PA-C Dec 25, 2016 08:08
[2016-12-25] MEDS: CELECOXIB 200 MG CAP PO SCH (08:10)
[2016-12-25] MEDS: DOCUSATE SODIUM 100 MG CAP PO SCH (08:10)
[2016-12-25] MEDS: FERROUS FUMARATE (SR) TAB PO SCH (08:10)
[2016-12-25] MEDS: ASPIRIN (EC) 325 MG TAB PO SCH (08:10)
[2016-12-25 08:14] VITALS: BP 147/81; RESP 18
--- NOTE | 2016-12-25 09:13 | CONS ---
Date/Time of Note Date/Time of Note DATE: 12/25/16 TIME: 09:06 Assessment/Plan Assessment/Plan Chief Complaint/Hosp Course Clinically stable after surgery. Blood Glucose levels suboptimal. Problems: (1) Osteoarthritis Status: Chronic Qualifiers: Osteoarthritis location: knee Laterality: right (2) Diabetes mellitus type 1 Status: Chronic Comment: Good glycemic control this morning. Change of infusion site and decreased effect of corticosteroid likely cause. Noted post prandial excursion. Needs more prandial insulin. Discussed with patient need to change insulin to carbohydrate ratio for meals. Qualifiers: Diabetes mellitus complication status: without complication Qualified Code : E10.9 - Type 1 diabetes mellitus without complication (3) Status post total right knee replacement Status: Acute Additional Assessment/Plan Good glycemic control. Appears back to baseline. Prandial insulin (amount of bolus) at meals discussed with patient. Clinically stable for discharge. Consultation Date/Type/Reason Admit Date/Time Dec 23, 2016 at 05:54 Initial Consult Date 12/23/16 Type of Consultation: Internal Medicine/ Endocrine Reason for Consultation Diabetes management Referring Provider: MICHELE POTTER MD 24 HR Interval Summary Free Text/Dictation Patient feels well this morning. Blood sugars better controlled. Plan for discharge home today. Constitutional: improved Exam/Review of Systems Vital Signs Vitals Vital Signs Date Time Temp Pulse Resp B/P Pulse Ox O2 Delivery O2 Flow Rate FiO2 12/25/16 08:14 97.9 92 18 147/81 94 12/24/16 20:00 Nasal Cannula 12/23/16 11:41 6.0 Intake and Output 12/24/16 12/24/16 12/25/16 15:00 23:00 07:00 Intake Total 100 ml 1080 ml 680 ml Output Total 1150 ml 1100 ml Balance 100 ml -70 ml -420 ml Exam Constitutional: alert, oriented, well developed Psych: nl mood/affect, no complaints Head: normocephalic Eyes: EOMI, PERRL, nl conjunctiva, nl sclera ENMT: mucosa pink and moist Neck: supple Respiratory: clear to auscultation Cardiovascular: regular rate and rhythm Gastrointestinal: soft Musculoskeletal: nl extremities to inspection Extremities: normal pulses Neurological: other (gorssly intact) Results POC glucose reviewed. Labs reviewed Result Diagram: 12/25/16 0425 Results 24 hrs Laboratory Tests Test 12/24/16 10:19 12/24/16 12:37 12/24/16 14:06 12/24/16 17:22 Bedside Glucose 287 H 311 H 308 H 195 Test 12/25/16 04:25 12/25/16 07:28 White Blood Count 10.6 # Red Blood Count 3.69 L Hemoglobin 11.5 L Hematocrit 34.5 L Mean Corpuscular Volume 93.5 Mean Corpuscular Hemoglobin 31.2 Mean Corpuscular Hemoglobin Concent 33.3 Red Cell Distribution Width 12.0 Platelet Count 219 Mean Platelet Volume 11.2 H Neutrophils % 56.4 Lymphocytes % 31.1 Monocytes % 9.2 Eosinophils % 2.5 Basophils % 0.5 Nucleated Red Blood Cells % 0.0 Neutrophils # 6.0 Lymphocytes # 3.3 H Monocytes # 1.0 H Eosinophils # 0.3 Basophils # 0.1 Nucleated Red Blood Cells # 0.0 Bedside Glucose 93 Medications Medications Current Medications Oxycodone HCl (Roxicodone) 20 mg Q3H PRN PO PAIN LEVEL 8-10 Last administered on 12/25/16 08:09; Admin Dose 20 MG; Start 12/23/16 at 11:30 Oxycodone HCl (Roxicodone) 10 mg Q3H PRN PO PAIN LEVEL 4-7 Last administered on 12/25/16 02:44; Admin Dose 10 MG; Start 12/23/16 at 11:30 Oxycodone HCl (Roxicodone) 5 mg Q3H PRN PO PAIN LEVEL 1-3; Start 12/23/16 at 11: 30 Zolpidem Tartrate (Ambien) 5 mg HS PRN PO INSOMNIA Last administered on 21:14; Admin Dose 5 MG; Start 12/23/16 at 11:30 Miscellaneous Information (Note) NOTE XX ; Start 12/23/16 at 11:30 Aspirin (Ecotrin) 325 mg BID PO Last administered on 12/25/16 08:10; Admin Dose 325 MG; Start 12/24/16 at 09:00 Celecoxib (Celebrex) 200 mg BID PO Last administered on 12/25/16 08:10; Admin Dose 200 MG; Start 12/24/16 at 09:00 Pantoprazole (Protonix Tab) 40 mg DAILY@06 PO Last administered on 12/25/16 06: 13; Admin Dose 40 MG; Start 12/25/16 at 06:00 Docusate Sodium/ Ferrous Fumarate (Abimbola-Sequels) 1 tab BID PO Last administered on 12/25/16 08:10; Admin Dose 1 TAB; Start 12/24/16 at 09:00 Docusate Sodium (Colace) 200 mg BID PO Last administered on 12/25/16 08:10; Admin Dose 200 MG; Start 12/24/16 at 09:00; Stop 12/27/16 at 08:59 Simethicone (Mylicon) 80 mg TID PRN PO DISTENSION/GAS/BLOATING; Start 12/23/16 at 11:30 Senna/Docusate Sodium (Senokot-S) 2 tab BID PRN PO CONSTIPATION Last administered on 12/25/16 08:10; Admin Dose 2 TAB; Start 12/23/16 at 11:30 Magnesium Hydroxide (Milk Of Mag) 30 ml HS PRN PO CONSTIPATION Last administered on 12/24/16 17:28; Admin Dose 30 ML; Start 12/23/16 at 11:30 Bisacodyl (Dulcolax Supp) 10 mg DAILY PRN [place] CONSTIPATION; Start 12/23/16 at 11: 30 Sodium Biphosphate/ Sodium Phosphate (Fleet Enema) 133 ml DAILY PRN [place] CONSTIPATION; Start 12/23/16 at 11:30 Diphenhydramine HCl (Benadryl) 25 mg Q4H PRN IM ITCHING OR RASH; Start 12/23/16 at 11:30 Ketorolac Tromethamine (Toradol) 15 mg DAILY@06 PRN INJ ADMINSTER BY SURGEON ONLY; Start 12/24/16 at 06:00; Stop 12/28/16 at 05:59 Bupivacaine HCl/ Epinephrine Bitart (Marcaine 0.25%/ Epi (Sdv) 30 ml) 20 ml DAILY@06 PRN INJ ADMINSTER BY SURGEON ONLY; Start 12/24/16 at 06:00; Stop at 05:59 Naloxone HCl (Narcan) 0.2 mg Q2M PRN IV DECREASED REPIRATORY RATE; Start at 11:30 Miscellaneous Information (* Miscellaneous Pharmacy Order) patient to use pre- program... ONCE XX ; Start 12/23/16 at 17:30 Diagnostic Test (Pha) (Accu-Chek) 1 ea [id number] Last administered on 07:47; Admin Dose 1 EA; Start 12/23/16 at 17:25 Miscellaneous Information 1 ea NOTE XX ; Start 12/23/16 at 18:00 Glucose (Glutose) 15 gm Q15M PRN PO DECREASED GLUCOSE; Start 12/23/16 at 18:00 Glucose (Glutose) 22.5 gm Q15M PRN PO DECREASED GLUCOSE; Start 12/23/16 at 18:00 Dextrose (D50w Syringe) 25 ml Q15M PRN IV DECREASED GLUCOSE; Start 12/23/16 at 18:00 Dextrose (D50w Syringe) 50 ml Q15M PRN IV DECREASED GLUCOSE; Start 12/23/16 at 18:00 Glucagon (Glucagen) 1 mg Q15M PRN IM DECREASED GLUCOSE; Start 12/23/16 at 18:00 Glucose (Glutose) 15 gm Q15M PRN BUCCAL DECREASED GLUCOSE; Start 12/23/16 at 18: 00 SAVANAH COLLINS MD Dec 25, 2016 09:13
[2016-12-26] MEDS ORDERED: NOVO3I SC (16:54)
[2016-12-26] MEDS ORDERED: HYDR-902 PO (16:56)
[2016-12-26] MEDS ORDERED: GABA100C14 PO (16:57)
[2016-12-26] MEDS ORDERED: ASPI-781 PO (16:57)
[2016-12-26] MEDS ORDERED: AMO500 PO (19:25)
== END 2016-12-25 11:15 | disposition home health service (06) | DRG 470 ==
LOC: REC 05:54 → MS1 12:47
PROC: 0SRC0J9 Replacement of Right Knee Joint with Synthetic Substitute, Cemented, Open Approach (ICD-10-PCS; principal; 2016-12-23 07:30)
DX: M17.11 Unilateral primary osteoarthritis, right knee (principal); E10.9 Type 1 diabetes mellitus without complications; F10.21 Alcohol dependence, in remission; Z96.41 Presence of insulin pump (external) (internal); Z79.4 Long term (current) use of insulin; Z79.82 Long term (current) use of aspirin; Z87.891 Personal history of nicotine dependence
CPT/HCPCS: 73560; 82962; 85025; 86850; 86900; 86901; 86920; 97110; 97116; 97162; 97166; 97530; C1776; J0131; J0690; J0735; J1100; J1885; J2250; J2274; J2370; J2405; J2710; J2765; J2795; J3370; J7120; J7121

== ENCOUNTER 2016-12-26 15:46 | Emergency (ER) | payer BC ==
[~2016-12-26] VITALS: Ht 182.9 cm; Wt 92.0 kg
[~2016-12-26 15:46] MED LIST changes: -AMO500 PO; -ASPI-781 PO; -GABA100C14 PO; -HYDR-902 PO; -NOVO3I SC
[2016-12-26 15:51] VITALS: Ht 182.9 cm; Wt 92.0 kg
--- NOTE | 2016-12-26 16:39 | ERD ---
ER Documentation Chief Complaint Date/Time DATE: 12/26/16 TIME: 16:30 Chief Complaint Fever after RIGHT TOTAL KNEE REPLACEMENT 2 days ago. HPI 56-year-old male with history of diabetes mellitus type 1 and osteoarthritis status post right total knee arthroplasty 12/23/16 referred to the ED for postop evaluation. He was discharged yesterday. After the drain was moved has noticed a moderate amount of serosanguineous drainage from the drain wound. He has also noted increasing redness and warmth of the distal thigh and proximal lower extremity. No purulent drainage from the wound. Pain is controlled by [place]. No chest pain or palpitations. Denies shortness of breath or cough. No dysuria or polyuria. No fevers to 99.2 but no chills. ROS All systems reviewed and are negative except as per history of present illness. Medications Home Meds Active Scripts Amoxicillin* (Amoxicillin*) 500 Mg Cap, 500 MG PO TID for 7 Days, CAP Prov:TYLER STAPLES MD 12/26/16 Reported Medications Aspirin* (Ecotrin*) 325 Mg Tablet.dr, 325 MG PO BID, TAB 12/26/16 Gabapentin* (Gabapentin*) 100 Mg Capsule, 100 MG PO BID, #60 CAP 12/26/16 Hydrocodone/Acetaminophen ([place] 10-325 Tablet) 1 Each Tablet, 1 EACH PO Q4H, TAB 12/26/16 Insulin Aspart* (Novolog Insulin Pen*) 100 Unit/Ml Soln, 57 UNIT SC WITH BREAKFAST, EA 12/26/16 Discontinued Reported Medications [Novolog Insulin Pump] No Conflict Check, 2.5 SQ Q1HOUR 12/23/16 Allergies Allergies: Coded Allergies: No Known Allergy (Unverified , 12/26/16) PMhx/Soc Reviewed in chart. As per HPI. History of Surgery: Yes (LOW BACK SX X 3) Anesthesia Reaction: No Hx Neurological Disorder: No Hx Respiratory Disorders: No Hx Cardiac Disorders: No Hx Psychiatric Problems: No Hx Miscellaneous Medical Probl: Yes (DM1, OA, L/S surgeries) Hx Alcohol Use: No Hx Substance Use: No Hx Tobacco Use: No FmHx Father: cancer, Mother: heart disease. Not relevant to presenting complaint Physical Exam Vitals Vital Signs Date Time Temp Pulse Resp B/P Pulse Ox O2 Delivery O2 Flow Rate FiO2 12/26/16 21:00 98.9 109 16 145/93 100 Room Air 12/26/16 17:50 98.0 97 18 139/77 98 Room Air 12/26/16 16:14 99.3 102 16 140/79 96 Room Air 12/26/16 15:51 99.2 115 20 139/83 95 Physical Exam Const: Alert, no acute distress. Head: Atraumatic Eyes: Normal Conjunctiva ENT: Normal External Ears, Nose and Mouth. Neck: Full range of motion..~ No meningismus. Resp: Clear to auscultation bilaterally Cardio: Regular rate and rhythm, no murmurs Abd: Soft, non tender, non distended. Normal bowel sounds Skin: No petechiae or rashes Back: No midline or flank tenderness Ext: No cyanosis, or edema. Right lower extremity: Wound healing well without erythema induration or drainage. Moderate tenderness, erythema and warmth of the distal thigh proximal to the wound and proximal lower extremity distal to the wound. Mild amount of serosanguineous drainage from the previous drain site. No purulent drainage. Neur: Awake and alert Psych: Normal Mood and Affect Result Diagram: 12/26/16 1630 12/26/16 1630 Results 24 hrs Laboratory Tests Test 12/26/16 16:30 White Blood Count 10.510^3/ul Red Blood Count 4.0910^6/ul Hemoglobin 12.8g/dl Hematocrit 36.9% Mean Corpuscular Volume 90.2fl Mean Corpuscular Hemoglobin 31.3pg Mean Corpuscular Hemoglobin Concent 34.7g/dl Red Cell Distribution Width 11.6% Platelet Count 47508^3/UL Mean Platelet Volume 11.0fl Neutrophils % 72.5% Lymphocytes % 14.4% Monocytes % 10.0% Eosinophils % 2.5% Basophils % 0.3% Nucleated Red Blood Cells % 0.0/100WBC Neutrophils # 7.610^3/ul Lymphocytes # 1.510^3/ul Monocytes # 1.110^3/ul Eosinophils # 0.310^3/ul Basophils # 0.010^3/ul Nucleated Red Blood Cells # 0.010^3/ul Sodium Level 134mmol/L Potassium Level 4.0mmol/L Chloride Level 104mmol/L Carbon Dioxide Level 26mmol/L Anion Gap 8 Blood Urea Nitrogen 13mg/dl Creatinine 0.85mg/dl Glucose Level 169mg/dl Calcium Level 8.7mg/dl Current Medications Medications (Trade) Dose Ordered Sig/Aby Route PRN Reason Start Time Stop Time Status Last Admin Dose Admin Vancomycin HCl (Vancocin) 250 ml @ 125 mls/hr ONCE IVPB 12/26/16 19:00 12/26/16 20:59 DC 12/26/16 18:45 PROCEDURE: Ultrasound of the right lower extremity venous system. CLINICAL INDICATION: Right leg pain and swelling, deep venous thrombosis TECHNIQUE: Varela scale with and without compression, color doppler, spectral doppler of the venous system of the right lower extremity was performed. Venous augmentation maneuvers were utilized. COMPARISON: No prior studies are available for comparison. FINDINGS: Common femoral vein: Patent. Femoral vein: Patent. Popliteal vein: Patent. Calf veins: Patent. No soft tissue abnormalities are identified. IMPRESSION: No evidence of a deep vein thrombosis within the right lower extremity. RPTAT: AADD .Stanley Peres MD, MD Date Time Electronically viewed and signed by .Stanley Peres MD, MD on 12/26/2016 17:55 .B/ Procedures/MDM DOCUMENTS REVIEWED: ED nurse, prior records including op note from 12/23/2016 MEDICAL DECISION MAKIN-year-old male with history of diabetes mellitus type 1 and osteoarthritis status post right total knee arthroplasty 12/23/16 referred to the ED for postop evaluation. Venous duplex of the right lower extremity is negative for DVT. Wound is healing well without erythema, induration or purulent drainage. Moderate warmth and erythema proximal and distal to the wound. Minimal amount of drainage from the drain stable insight which is nonpurulent. Doubt wound infection or septic arthritis. No symptoms of pneumonia or UTI. Case discussed with his orthopedic surgeon Dr. Ham, requested vancomycin 1 g IV piggyback and discharge on amoxicillin 500 TID. Vancomycin infused over 2 hours with reaction. Stable for discharge with precautionary instructions and outpatient followuo s counseled. Counseled patient and family regarding diagnostic workup, diagnosis and need for followup. Understands to return to ED if symptoms recur, worsen or any other concerns. Follow-up with Dr. Ham on Wednesday. Avoid vigorous activity. CALLS/CONSULTATIONS: Time: 17:10. Dr Ham. Recommends Departure Diagnosis: Primary Impression: Status post total right knee replacement Additional Impressions: Diabetes mellitus type 1 Diabetes mellitus complication status: without complication Qualified Code: E10.9 - Type 1 diabetes mellitus without complication Osteoarthritis Osteoarthritis location: knee Osteoarthritis type: unspecified Laterality: right Qualified Code: M17.11 - Osteoarthritis of right knee, unspecified osteoarthritis type Encounter for postoperative wound check Condition: Stable TYLER STAPLES MD Dec 26, 2016 16:39
[2016-12-26] MEDS ORDERED: NOVO3I SC (16:54)
[2016-12-26] MEDS ORDERED: HYDR-902 PO (16:56)
[2016-12-26] MEDS ORDERED: ASPI-781 PO (16:57)
[2016-12-26] MEDS ORDERED: GABA100C14 PO (16:57)
[2016-12-26 16:59] LABS: ADD SCAN DIFF NO
[2016-12-26 17:11] LABS: BASOPHILS % 0.3 % (0.0-2.0); EOSINOPHILS # 0.3 10^3/ul (0.0-0.5); EOSINOPHILS % 2.5 % (0.0-7.0); HEMATOCRIT 36.9 % (42.0-52.0); HEMOGLOBIN 12.8 g/dl (14.0-18.0); LYMPHOCYTES # 1.5 10^3/ul (0.8-2.9); LYMPHOCYTES % 14.4 % (15.0-51.0); MEAN CORPUSCULAR HEMOGLOBIN 31.3 pg (29.0-33.0); MEAN CORPUSCULAR HGB CONC 34.7 g/dl (32.0-37.0); MEAN CORPUSCULAR VOLUME 90.2 fl (82.0-101.0); MONOCYTE # 1.1 10^3/ul (0.3-0.9); NEUTROPHIL # 7.6 10^3/ul (1.6-7.5); NEUTROPHILS % 72.5 % (39.0-77.0); PLATELET COUNT 254 10^3/UL (140-415); RED BLOOD COUNT 4.09 10^6/ul (4.70-6.10); RED CELL DISTRIBUTION WIDTH 11.6 % (11.5-14.5); WHITE BLOOD COUNT 10.5 10^3/ul (4.8-10.8)
[2016-12-26 17:28] LABS: CALCIUM 8.7 mg/dl (8.4-10.2); CREATININE 0.85 mg/dl (0.61-1.24)
--- NOTE | 2016-12-26 17:56 | RADRPT ---
PROCEDURE: Ultrasound of the right lower extremity venous system. CLINICAL INDICATION: Right leg pain and swelling, deep venous thrombosis TECHNIQUE: Varela scale with and without compression, color doppler, spectral doppler of the venous system of the right lower extremity was performed. Venous augmentation maneuvers were utilized. COMPARISON: No prior studies are available for comparison. FINDINGS: Common femoral vein: Patent. Femoral vein: Patent. Popliteal vein: Patent. Calf veins: Patent. No soft tissue abnormalities are identified. IMPRESSION: No evidence of a deep vein thrombosis within the right lower extremity. RPTAT: AADD .Stanley Peres MD, MD Date Time Electronically viewed and signed by .Stanley Peres MD, on 12/26/2016 17:55 .B/
[2016-12-26] MEDS ORDERED: VANCOMYCIN 1 GM (PMX) 250 ML IVPB SCH (19:00)
[2016-12-26] MEDS ORDERED: AMO500 PO (19:25)
[2016-12-26 21:00] VITALS: BP 145/93; PULSE 109; RESP 16; TEMP 98.9
== END 2016-12-26 21:07 | disposition home or self-care (01) ==
LOC: E/R 15:46
DX: Z96.651 Presence of right artificial knee joint (principal); E10.9 Type 1 diabetes mellitus without complications; M17.11 Unilateral primary osteoarthritis, right knee; Z79.4 Long term (current) use of insulin; Z79.82 Long term (current) use of aspirin
CPT/HCPCS: 80048; 85025; 93971; J3370; 96365

== ENCOUNTER → 2016-12-29 | Outpatient (CLI) | payer BC ==
[~2016-12-29] MED LIST changes: +AMO500 PO; +ASPI-781 PO; +GABA100C14 PO; +HYDR-902 PO; +NOVO3I SC; -NOVOLOG INSULIN PUMP SQ
--- NOTE | 2016-12-29 16:46 | PN ---
Date/Time of Note Date/Time of Note DATE: 12/29/16 TIME: 16:41 Outpatient Progress Note Chief Complaint Wound check status post right total knee arthroplasty performed on 12/23/2016. HPI 56-year-old male presents today, with , status post right total knee arthroplasty performed on 12/23/2016 due to pain and possible complication to the wound. Patient called over the weekend (12/26/2016) experiencing significant pain and erythema over the right knee status post surgery. Patient states that home health nurse that saw patient over the weekend also states that he had low- grade fever at around 99. No discharge at the time. Patient presented to the [facility] emergency room. Evaluation was performed and no fever was seen. White blood cell count was normal. Venous Doppler was performed showing no signs of any DVT and no abnormalities to the soft tissue status post surgery. Patient was discharged with prescription of amoxicillin provided by emergency room physician Dr. Staples. Since discharge from the hospital, pain has improved. Patient and patient's also states that erythema surrounding the right knee has improved although still present currently. Patient is weightbearing with assistance using single-point cane. Denies any falls. Continues experiencing soreness to the right knee. Denies any discharge to the right knee at this time. No fever, chills or malaise. Denies any chest pain/ tightness, calf pain or shortness of breath. Presents today for wound check. Review of Systems Const: No Fever, no chills, no Fatigue, normal appetite, no diaphoresis. Resp: No SOB, no wheezing, no chest pain. CV: No chest pain, no palpitaions, no GO. Physical Exam Blood pressure 137/88, temperature 98.8, pulse 114, respiratory rate 12, height 6 feet, weight 202 pounds. General Appearance: well-developed, well-nourished, in no acute distress. Right knee: Ecchymosis to the anterior right knee status post surgery. Wound site does look clean dry and intact with no signs of infection. No discharge presentation. Mild tenderness to palpation on examination. Mild increased temperature on palpation. Erythema to the wound appears to be ecchymosis as opposed to underlying sign of infection. Patient states that erythema has improved since he was seen in the emergency room and presents with pictures on his cell phone showing significant improvement from the weekend. About 5 lag from full extension and patient is able to flex up to 100 today. Limp with mild antalgic gait. Ambulation using single-point cane. Allergies Coded Allergies: No Known Allergy (Unverified , 12/26/16) Assessment/Plan * Continue with amoxicillin antibiotic provided by emergency room physician on . * Continue postoperative pain medication in regards to [place] 10/325 mg as needed. * Continue anti-inflammatories as patient states that he is yet to use Celebrex. Celebrex was prescribed again today. * Continue DVT prophylaxis in regards to aspirin 325 mg twice daily. * Patient will follow up in 1 week for wound check and repeat evaluation status post severe pain exacerbation over the weekend. * Patient and patient's made aware that should he experience any worsening symptoms prior to next appointment, follow-up as soon as possible. Dr. Ham is also seen patient today and agrees with plan. Medications Home Meds Active Scripts Amoxicillin* (Amoxicillin*) 500 Mg Cap, 500 MG PO TID for 7 Days, CAP Prov:TYLER STAPLES MD 12/26/16 Reported Medications Aspirin* (Ecotrin*) 325 Mg Tablet., 325 MG PO BID, TAB 12/26/16 Gabapentin* (Gabapentin*) 100 Mg Capsule, 100 MG PO BID, #60 CAP 12/26/16 Hydrocodone/Acetaminophen ([place] 10-325 Tablet) 1 Each Tablet, 1 EACH PO Q4H, TAB 12/26/16 Insulin Aspart* (Novolog Insulin Pen*) 100 Unit/Ml Soln, 57 UNIT SC WITH BREAKFAST, EA 12/26/16 Discontinued Reported Medications [Novolog Insulin Pump] No Conflict Check, 2.5 SQ Q1HOUR 12/23/16 JANINA CONTEH PA-C Dec 29, 2016 16:46
== END | disposition home or self-care (01) ==
LOC: HKI 13:42
DX: Z47.1 Aftercare following joint replacement surgery (principal); Z96.651 Presence of right artificial knee joint

== ENCOUNTER → 2017-01-06 | Outpatient (CLI) | payer BC ==
--- NOTE | 2017-01-06 15:17 | PN ---
Date/Time of Note Date/Time of Note DATE: 01/06/17 TIME: 15:06 Outpatient Progress Note Chief Complaint 2 week postop status post right total knee replacement. HPI 56-year-old male resents today for two-week postoperative visit status post right total knee replacement on 12/23/2016. Patient states that he has been getting severe pain on occasion. Patient states that he is almost out of his Erick 10/325 mg. 90 tablets were provided preoperatively. 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 He confirms that he has not been driving or performing any high intensity activities in regards to weightbearing and lifting materials. Uses a single-point cane for assisted ambulation. Patient used his Tegaderm dressing throughout the day upon discharge from the hospital and began experiencing some discomfort. He was seen last week after he had to present to emergency room which ruled out infection but patient was provided antibiotic by emergency room physician as a precaution. He has completed antibiotic regimen. He was using paper tape over gauze which created an allergic reaction. Patient stopped using paper paper tape and dermatitis has improved, per patient and patient's account. Due to extensive use of the Tegaderm dressing throughout the course of the day, patient did develop blistering. Blistering has drained and is now scabbed. Patient denies any discharge, fever, chills or malaise. Has taken last dose of antibiotic yesterday. Denies any chest pain/ tightness, shortness of breath or calf pain. Patient is ambulating okay. Review of Systems Const: No Fever, no chills, no Fatigue, normal appetite, no diaphoresis. Resp: No SOB, no wheezing, no chest pain. CV: No chest pain, no palpitaions, no GO. Physical Exam General Appearance: well-developed, well-nourished, in no acute distress. Right knee: Scabbing over region of blister to the medial side of the knee. No signs of infection. Mild erythema at region where paper tape was applied. Patient did state that where paper tape was applied he had pruritic complaints that is slowly decreasing since he stopped using tape to that region. No tenderness to palpation today. Velpen are intact. No signs of infection. Surgical wound is well approximated with normal eschar. 5 lag from full extension and patient is able to actively flex up to 110. Negative Homans sign. Allergies Coded Allergies: No Known Allergy (Unverified , 12/26/16) Assessment/Plan * Staple removal performed today. Steri-Strips applied. Wound care instructions discussed again in detail with patient. * After leaving the room, patient's spoke with me privately and states that she is concerned that patient may be using pain medication in excess. She states that patient can be very dramatic and exaggerated with pain complaints. She is concerned as patient has had past history of alcoholism but has been sober for the past 2 years. She also states that patient may be overly aggressive with his activity which could be creating increased pain to the knee. It was expressed that patient is only 2 weeks out of surgery and that type of aggression can be detrimental to his overall progress in rehabilitation. * Lengthy discussion was had with patient regarding appropriate activity status post total knee replacement. It was advised that patient avoid heavy stress, prolonged standing and detrimental activities that he may be performing at work as this may create complications status post surgery especially since he is only 2 weeks out. Patient was provided with prescription of Erick 10/325 mg every 8 hours #45 tablets. Instructed to use only as needed at times of severe pain or before physical therapy. Patient was also advised to use a half tablet to see if this helps manage pain as there is a concern, brought up by patient's , of past substance abuse issues. Patient was more than compliant today and states that he will trial half tablet as needed for pain complaints. He will also avoid strenuous activity status post knee replacement. * Patient will follow up in 1 week for 3 week appointment. May follow-up sooner should he experience any complications. Medications Home Meds Active Scripts Amoxicillin* (Amoxicillin*) 500 Mg Cap, 500 MG PO TID for 7 Days, CAP Prov:TYLER STAPLES MD 12/26/16 Reported Medications Aspirin* (Ecotrin*) 325 Mg Tablet., 325 MG PO BID, TAB 12/26/16 Gabapentin* (Gabapentin*) 100 Mg Capsule, 100 MG PO BID, #60 CAP 12/26/16 Hydrocodone/Acetaminophen ([place]rick 10-325 Tablet) 1 Each Tablet, 1 EACH PO Q4H, TAB 12/26/16 Insulin Aspart* (Novolog Insulin Pen*) 100 Unit/Ml Soln, 57 UNIT SC WITH BREAKFAST, EA 12/26/16 JANINA CONTEH PA-C Jan 06, 2017 15:17
== END | disposition home or self-care (01) ==
LOC: HKI 13:43
DX: Z47.1 Aftercare following joint replacement surgery (principal); Z96.651 Presence of right artificial knee joint

== ENCOUNTER → 2017-01-11 | Outpatient (CLI) | payer BC ==
--- NOTE | 2017-01-11 11:38 | PN ---
Date/Time of Note Date/Time of Note DATE: 01/11/17 TIME: 11:25 Outpatient Progress Note Chief Complaint Wound check R Knee. HPI 56 y/o male 3 weeks s/p Right TKA present for wound check. Had drainage over the weekend. No significant pain. Walking independently but carries cane to make sure he has support. No fever,chills or malaise. No redness. Patient feels that drainage is from blister on the medial side of the wound as it is clear. Overall doing well and remains very happy s/p surgery. Presents with his sister today. Review of Systems Const: No Fever, no chills, no Fatigue, normal appetite, no diaphoresis. Resp: No SOB, no wheezing, no chest pain. CV: No chest pain, no palpitaions, no GO. Physical Exam Temp: 98.6, BP: 139/81, HR 99, Hgt. 6 ft, Wgt. 193lb General Appearance: well-developed, well-nourished, in no acute distress. Right knee. small clear fluid drainage to the right knee just medial to the surgical wound at the site of the blister. No erythema, skin very dry and peeling around the knee. Small region of surgical wound along middle 3rd that is still healing but good eschar formation the remainder of the wound. No calf pain. Allergies Coded Allergies: No Known Allergy (Unverified , 12/26/16) Assessment/Plan * Blister was drained today with 16 gauge needle but skin overlying blister was not removed. Betadine applied prior to drainage. * Steri-strips reapplied today. Wound care discussed * patient will f/u in 2 days for monitoring. * Patient may use unscented lotion like Aquaphor, or Eucerin to the right knee as the skin is very dry and beginning to crack. DO NOT apply over the surgical wound. Thin film application. Medications Home Meds Active Scripts Amoxicillin* (Amoxicillin*) 500 Mg Cap, 500 MG PO TID for 7 Days, CAP Prov:TYLER STAPLES MD 12/26/16 Reported Medications Aspirin* (Ecotrin*) 325 Mg Tablet.dr, 325 MG PO BID, TAB 12/26/16 Gabapentin* (Gabapentin*) 100 Mg Capsule, 100 MG PO BID, #60 CAP 12/26/16 Hydrocodone/Acetaminophen ([place] 10-325 Tablet) 1 Each Tablet, 1 EACH PO Q4H, TAB 12/26/16 Insulin Aspart* (Novolog Insulin Pen*) 100 Unit/Ml Soln, 57 UNIT SC WITH BREAKFAST, EA 12/26/16 JANINA CONTEH PA-C Jan 11, 2017 11:38
== END | disposition home or self-care (01) ==
LOC: HKI 10:59
DX: Z47.1 Aftercare following joint replacement surgery (principal); Z96.651 Presence of right artificial knee joint

== ENCOUNTER → 2017-01-13 | Outpatient (CLI) | payer BC ==
--- NOTE | 2017-01-13 14:27 | PN ---
Date/Time of Note Date/Time of Note DATE: 01/13/17 TIME: 14:24 Outpatient Progress Note Chief Complaint 3 week follow-up status post right total knee replacement HPI 56-year-old male presents today for 3 week postop appointment status post right total knee arthroplasty performed on 12/23/2016. Patient was seen 2 days ago for wound check. Wound continues to heal well. Eschar present. Steri-Strips still in place. Denies any discharge. Patient continues working in which he states he works typically for about 2-3 hours a day. Patient is weightbearing for extended amounts of time while at work. When patient returns from work he is in severe pain. Keene does help control pain complaints. Denies any fall since he was last seen. Patient states he is no longer using single-point cane for assisted ambulation. Review of Systems Const: No Fever, no chills, no Fatigue, normal appetite, no diaphoresis. Resp: No SOB, no wheezing, no chest pain. CV: No chest pain, no palpitaions, no GO. Physical Exam Blood pressure is 146/74, temperature 98.4, pulse is 90, respiratory rate is 12 , height is 6 feet, weight is 193 pounds. General Appearance: well-developed, well-nourished, in no acute distress. Left knee: Eschar to the surgical wound. Steri-Strips in place. No signs of infection. No tenderness to palpation. Range of motion today is 5 lag from full extension with flexion up to 115. No pain during physical examination today. Negative Homans sign. Normal sensory examination to light touch. Allergies Coded Allergies: No Known Allergy (Unverified , 12/26/16) Assessment/Plan -Wound healing well after staple removal. No signs of infection. -Continue ASA 325 mg twice daily for DVT prophylaxis until 6 weeks status post surgery. -No signs of DVT. -Patient progressing well. -Follow-up at 6 week postop appointment. X-rays will be performed at 6 weeks postoperative appointment. -Patient advised to avoid/decrease time intensity activity at work as he does complain of severe pain after going to work. Continue with outpatient physical therapy. -Patient made aware that they may follow-up sooner, should they experience any issues or complications as we will be glad to see them. -Order for outpatient physical therapy given today with focus on improved range of motion. Medications Home Meds Active Scripts Amoxicillin* (Amoxicillin*) 500 Mg Cap, 500 MG PO TID for 7 Days, CAP Prov:TYLER STAPLES MD 12/26/16 Reported Medications Aspirin* (Ecotrin*) 325 Mg Tablet.dr, 325 MG PO BID, TAB 12/26/16 Gabapentin* (Gabapentin*) 100 Mg Capsule, 100 MG PO BID, #60 CAP 12/26/16 Hydrocodone/Acetaminophen ([place] 10-325 Tablet) 1 Each Tablet, 1 EACH PO Q4H, TAB 12/26/16 Insulin Aspart* (Novolog Insulin Pen*) 100 Unit/Ml Soln, 57 UNIT SC WITH BREAKFAST, EA 12/26/16 JANINA CONTEH PA-C Jan 13, 2017 14:27
== END | disposition home or self-care (01) ==
LOC: HKI 13:59
DX: Z47.1 Aftercare following joint replacement surgery (principal); Z96.651 Presence of right artificial knee joint

== ENCOUNTER 2017-01-18 20:21 | Emergency (ER) | payer BC ==
[~2017-01-18] VITALS: Ht 182.9 cm; Wt 88.2 kg
[2017-01-18 20:27] VITALS: Ht 182.9 cm; Wt 88.2 kg
[2017-01-18] MEDS ORDERED: VANCOMYCIN 1 GM (PMX) 250 ML IVPB SCH (21:00)
[2017-01-18 21:21] LABS: ADD SCAN DIFF NO
[2017-01-18 21:23] LABS: BASOPHIL # 0.1 10^3/ul (0.0-0.1); BASOPHILS % 0.6 % (0.0-2.0); EOSINOPHILS # 0.4 10^3/ul (0.0-0.5); EOSINOPHILS % 4.4 % (0.0-7.0); HEMATOCRIT 37.4 % (42.0-52.0); HEMOGLOBIN 12.6 g/dl (14.0-18.0); LYMPHOCYTES % 23.9 % (15.0-51.0); MEAN CORPUSCULAR HEMOGLOBIN 30.9 pg (29.0-33.0); MEAN CORPUSCULAR HGB CONC 33.7 g/dl (32.0-37.0); MEAN CORPUSCULAR VOLUME 91.7 fl (82.0-101.0); MONOCYTE # 0.8 10^3/ul (0.3-0.9); MONOCYTES % 9.7 % (0.0-11.0); NEUTROPHIL # 5.1 10^3/ul (1.6-7.5); NEUTROPHILS % 60.9 % (39.0-77.0); PLATELET COUNT 389 10^3/UL (140-415); RED BLOOD COUNT 4.08 10^6/ul (4.70-6.10); RED CELL DISTRIBUTION WIDTH 12.2 % (11.5-14.5); WHITE BLOOD COUNT 8.4 10^3/ul (4.8-10.8)
[2017-01-18] MEDS ORDERED: AMO500 PO (21:41)
--- NOTE | 2017-01-18 21:44 | ERD ---
ER Documentation Chief Complaint Date/Time DATE: 01/18/17 TIME: 21:42 Chief Complaint S/P right total knee replacement, "wound opened" per patient HPI This is a 56-year-old male who presents the emergency room with potential wound dehiscence and infection of the right total knee replacement performed approximately 2-3 weeks ago. He was brought in by his surgeon Dr. Potter. He notes that there was a break in the inferior aspect of the wound and he has erythema warmth and tenderness. Patient describes mild discomfort that is worse to touch. ROS All systems reviewed and are negative except as per history of present illness. Medications Home Meds Active Scripts Amoxicillin* (Amoxicillin*) 500 Mg Cap, 500 MG PO TID for 10 Days, CAP Prov:STEVEN POOLE MD 01/18/17 Amoxicillin* (Amoxicillin*) 500 Mg Cap, 500 MG PO TID for 7 Days, CAP Prov:TYLER STAPLES MD 12/26/16 Reported Medications Aspirin* (Ecotrin*) 325 Mg Tablet.dr, 325 MG PO BID, TAB 12/26/16 Gabapentin* (Gabapentin*) 100 Mg Capsule, 100 MG PO BID, #60 CAP 12/26/16 Hydrocodone/Acetaminophen ([place] 10-325 Tablet) 1 Each Tablet, 1 EACH PO Q4H, TAB 12/26/16 Insulin Aspart* (Novolog Insulin Pen*) 100 Unit/Ml Soln, 57 UNIT SC WITH BREAKFAST, EA 12/26/16 Allergies Allergies: Coded Allergies: No Known Allergy (Unverified , 12/26/16) PMhx/Soc History of Surgery: Yes (LOW BACK SX X 3) Anesthesia Reaction: No Hx Neurological Disorder: No Hx Respiratory Disorders: No Hx Cardiac Disorders: No Hx Psychiatric Problems: No Hx Miscellaneous Medical Probl: Yes (DM1, OA, L/S surgeries) Hx Alcohol Use: No Hx Substance Use: No Hx Tobacco Use: No Smoking Status: Never smoker FmHx Family History: No diabetes Physical Exam Vitals Vital Signs Date Time Temp Pulse Resp B/P Pulse Ox O2 Delivery O2 Flow Rate FiO2 01/18/17 20:30 98.4 75 18 147/86 99 Room Air 01/18/17 20:27 99.3 106 18 147/86 97 Physical Exam General: Well developed, well nourished, no acute distress Head: Normocephalic, atraumatic. Eyes: EOM intact ENT: Moist mucous membranes Neck: Full ROM Respiratory: No respiratory distress Cardiovascular: Good capillary refil Abdominal: Nondistended : Deferred MSK: Right knee is erythematous, warm to touch with evidence of potential dehiscence to the inferior aspect of the wound, no significant drainage. Neurologic: Alert and oriented, moving all extremities, normal speech, steady gait Skin: No rash Psych: Normal mood Result Diagram: 01/18/172104 Results 24 hrs Laboratory Tests Test 01/18/17 21:05 White Blood Count 8.410^3/ul Red Blood Count 4.0810^6/ul Hemoglobin 12.6g/dl Hematocrit 37.4% Mean Corpuscular Volume 91.7fl Mean Corpuscular Hemoglobin 30.9pg Mean Corpuscular Hemoglobin Concent 33.7g/dl Red Cell Distribution Width 12.2% Platelet Count 98045^3/UL Mean Platelet Volume 10.0fl Neutrophils % 60.9% Lymphocytes % 23.9% Monocytes % 9.7% Eosinophils % 4.4% Basophils % 0.6% Nucleated Red Blood Cells % 0.0/100WBC Neutrophils # 5.110^3/ul Lymphocytes # 2.010^3/ul Monocytes # 0.810^3/ul Eosinophils # 0.410^3/ul Basophils # 0.110^3/ul Nucleated Red Blood Cells # 0.010^3/ul Current Medications Medications (Trade) Dose Ordered Sig/Aby Route PRN Reason Start Time Stop Time Status Last Admin Dose Admin Vancomycin HCl (Vancocin) 250 ml @ 125 mls/hr ONCE IVPB 01/18/17 21:00 01/18/17 22:59 01/18/17 21:32 Procedures/MDM LAB INTERPRETATION: No leukocytosis MEDICAL DECISION MAKING: The patient's orthopedic surgeon was at the bedside. He placed a wound VAC. He requested that the patient received 1 g of vancomycin and would be discharged on amoxicillin 500 3 times daily. The patient will follow up with him in 1-2 days and have potential OR revision. ER COURSE: The patient has no evidence of deep space infection. His orthopedic surgeon has evaluated the patient and placed a wound VAC. The patient is safe for discharge. I kept the patient and/or family informed of laboratory and diagnostic imaging results throughout the emergency room course. DISPOSITION PLAN: We discussed follow up with the patient's primary care doctor within 24 to 48 hours as needed. We also discussed return to the emergency room for worsening symptoms or worsening condition. Outpatient referral: [None required] Discharge Medications: Amoxicillin CONSULTATION: Dr. Potter, orthopedic surgeon Departure Diagnosis: Primary Impression: Postoperative wound infection Encounter type: initial encounter Qualified Code: T81.4XXA - Postoperative wound infection, initial encounter Additional Impression: Status post total right knee replacement Condition: Stable Patient Instructions: Wound Care Referrals: MICHELE POTTER MD Additional Instructions: Call your primary care doctor TOMORROW for an appointment during the next 1 WEEK.Tell the executive secretary that you were referred from this facility.See the doctor sooner or return here if your condition worsens before your appointment time. STEVEN POOLE MD January 18, 2017 21:44
[2017-01-18 23:44] VITALS: BP 134/84; PULSE 88; RESP 18; TEMP 98.6
--- NOTE | 2017-01-20 14:05 | PREOPHP ---
DATE OF ADMISSION: 01/18/2017 PREOPERATIVE HISTORY AND PHYSICAL AND EMERGENCY ROOM VISIT The patient's visiting nurse called me at about 6:00 in the evening to tell me that the patient's kn ee wound had suddenly become worrisome. He also sent me a photograph of the knee. I did not like t he appearance of the tissue. There was a lot of crusting of the soft tissues around the knee and a clearly defined wedge of necrotic tissue in the middle. I asked the patient to come to the emergenc y room right away so that I could evaluate the wound better. He was seen in the emergency room without a full admit to the ER. PHYSICAL EXAMINATION: His temperature was normal. The soft tissues around the knee, other than the affected area, looked remarkably normal with no sign of spreading infection. There was, however, s ome drainage from the middle of the necrotic area. It is difficult to tell where the drainage is co miguel a from. Cultures were obtained. The wound was cleaned as well as possible and a wound VAC was applied. The patient is advised to return to the hospital on 01/22/2017 for exploration, debridement and applica tion of a new wound VAC. For the remainder of this patient's history and physical, please see his hospital record. He had a knee replacement 3 weeks ago. Dictated By: MICHELE CHAVEZ/THOMAS Conf#: [id number] DID#: [id number]
== END 2017-01-18 23:46 | disposition home or self-care (01) ==
LOC: E/R 20:21
DX: T81.4XXA Infection following a procedure, initial encounter (principal); E10.9 Type 1 diabetes mellitus without complications; L53.9 Erythematous condition, unspecified; Y79.2 Prosthetic and other implants, materials and accessory orthopedic devices associated with adverse incidents; Z79.4 Long term (current) use of insulin; Z79.82 Long term (current) use of aspirin; Z96.651 Presence of right artificial knee joint
CPT/HCPCS: 36415; 85025; 85651; 96365; 96366; 99284; J3370

== ENCOUNTER 2017-01-20 08:30 | Day surgery (SDC) | payer BC ==
[2017-01-20] VITALS (11 sets, daily range): BP systolic 96–135; BP diastolic 61–80; PULSE 88–102; RESP 12–20; Ht 182.9 cm; Wt 88.4 kg
[~2017-01-20] VITALS: Ht 182.9 cm; Wt 88.4 kg
[2017-01-20] MEDS ORDERED: NOVO3I SC (09:05)
[2017-01-20] MEDS ORDERED: morphine 10 MG INJ SC ONE (09:30)
[2017-01-20] MEDS ORDERED: VANCOMYCIN 1 GM in NS 250 ML IVPB SCH (09:30)
[2017-01-20] MEDS ORDERED: LACTATED RINGER'S 1,000 ML IV* SCH (09:30)
[2017-01-20] MEDS ORDERED: LANSOPRAZOLE 30 MG CAP PO SCH (10:00)
[2017-01-20] MEDS ORDERED: ACETAMINOPHEN 1000MG/100ML IV 100 ML IVPB ONE (10:00)
[2017-01-20] MEDS ORDERED: CELECOXIB 200 MG CAP PO SCH (10:00)
[2017-01-20] MEDS ORDERED: ONDANSETRON 4 MG INJ IV SCH (10:00)
[2017-01-20] MEDS ORDERED: oxyCODONE (CR) 10 MG TAB [oxyCONTIN] PO SCH (10:00)
[2017-01-20] MEDS ORDERED: DEXAMETHASONE 4 MG/ML 1 ML INJ IV SCH (10:00)
[2017-01-20] MEDS ORDERED: PROPOFOL 20 ML ONE (10:55)
[2017-01-20] MEDS ORDERED: NEOSTIGMINE 3 MG/3 ML SYRINGE ONE (10:55)
[2017-01-20] MEDS ORDERED: FENTAnyl 50 MCG/ML VIAL ONE (10:55)
[2017-01-20] MEDS ORDERED: LIDOCAINE 2% (SDV) 5 ML INJ ONE (10:55)
[2017-01-20] MEDS ORDERED: ROCURONIUM 50 MG INJ ONE (10:55)
[2017-01-20] MEDS ORDERED: MIDAZOLAM 1 MG/ML 2 ML INJ ONE (10:55)
[2017-01-20] MEDS ORDERED: GLYCOPYRROLATE 0.4 MG INJ ONE (10:55)
[2017-01-20] MEDS ORDERED: DIPHENHYDRAMINE 50 MG INJ IV PRN (11:00)
[2017-01-20] MEDS ORDERED: ONDANSETRON 4 MG INJ IV PRN (11:00)
[2017-01-20] MEDS ORDERED: hydrALAzine 20 MG INJ IV PRN (11:00)
[2017-01-20] MEDS ORDERED: MIDAZOLAM 1 MG/ML 2 ML INJ IV PRN (11:00)
[2017-01-20] MEDS ORDERED: HYDROmorphONE (0.2 MG/ML) 10ML SYG IV PRN ×3 (11:00)
[2017-01-20] MEDS ORDERED: morphine (1 MG/ML) 10ML SYRINGE IV PRN ×3 (11:00)
[2017-01-20] MEDS ORDERED: LABETALOL HCL 20MG INJ IV PRN (11:00)
[2017-01-20] MEDS ORDERED: ATROPINE 1 MG/10 ML SYRINGE IV PRN (11:00)
[2017-01-20] MEDS ORDERED: OXYCODONE/ACETAMINOPHEN (5/325) TAB PO PRN ×2 (11:00)
[2017-01-20] MEDS ORDERED: EPHEDrine SULFATE 50 MG/5 ML SYG IV PRN (11:00)
[2017-01-20] MEDS ORDERED: FENTAnyl 50 MCG/ML VIAL IV PRN (11:00)
[2017-01-20] MEDS ORDERED: DEXAMETHASONE 4 MG/ML 1 ML INJ ONE (11:03)
[2017-01-20] MEDS ORDERED: ONDANSETRON 4 MG INJ ONE (11:03)
--- NOTE | 2017-01-20 11:33 | HPN ---
Date/Time of Note Date/Time of Note DATE: 01/20/17 TIME: 11:33 Interval H&P Admission Note Pt. seen H&P reviewed: No system changes JANINA CONTEH PA-C January 20, 2017 11:33
[2017-01-20] MEDS ORDERED: POLYMYXIN B 500000 UNIT INJ ONE (12:07)
[2017-01-20] MEDS ORDERED: VANCOMYCIN 1 GM INJ ONE (12:07)
[2017-01-20] MEDS ORDERED: POLYMYXIN/BACITRACIN 1L IRRIG ONE (12:07)
[2017-01-20] MEDS ORDERED: BACITRACIN 50000 UNITS INJ ONE ×2 (12:10→14:33)
[2017-01-20 12:22] LABS: POTASSIUM 4.4 mmol/L (3.5-5.1)
[2017-01-20 12:24] LABS: INR 1.1; PROTIME 14.2 Sec (12.2-14.2); PT RATIO 1.1
[2017-01-20 12:25] LABS: ALANINE AMINOTRANSFERASE 29 IU/L (13-69); ASPARTATE AMINO TRANSFERASE 11 IU/L (15-46); PARTIAL THROMBOPLASTIN TIME 33.4 Sec (25.0-35.0)
[2017-01-20 12:36] LABS: CALCIUM 9.2 mg/dl (8.4-10.2); CREATININE 0.8 mg/dl (0.61-1.24)
[2017-01-20] MEDS ORDERED: METHYLENE BLUE 1% 10 ML INJ ONE (13:25)
[2017-01-20] MEDS ORDERED: POLYMYXIN B 500000 UNIT INJ IRR ONE (13:45)
[2017-01-20] MEDS ORDERED: VANCOMYCIN 1 GM INJ IRR ONE (13:45)
[2017-01-20] MEDS ORDERED: BACITRACIN 50000 UNITS INJ IRR ONE (13:45)
[2017-01-20] MEDS ORDERED: DEXTROSE 50% 50 ML SYRINGE ONE (14:00)
[2017-01-20] MEDS: MEPERIDINE 25 MG INJ IV PRN ×2 (14:08→14:11)
--- NOTE | 2017-01-20 14:13 | OPR ---
DATE OF OPERATION: 01/20/2017 SURGEON: Anthony Ham MD Allergy And Immunology Chief: KARLA Ley ANESTHESIOLOGIST: Jamie Crenshaw MD PREOPERATIVE DIAGNOSIS: Possibly infected right total knee replacement. POSTOPERATIVE DIAGNOSIS: Possibly infected right total knee replacement. PROCEDURE: 1. Exploration of wound area. 2. Debridement of necrotic tissue 3. Packing of a subcutaneous cavity with iodoform gauze. FINDINGS AT SURGERY: The main wound of the knee appeared to be healing well without any sign of inf ection or inflammation. A small triangular area of necrotic tissue based on the wound edge was note d. After this was debrided, there was a subcutaneous cavity evident passing medially below the knee joint level. The cavity was perhaps an inch and a half deep. It was probed, but no entry way coul d be found passing into the knee joint itself. There was a small effusion present at the knee. The knee was separately aspirated for cell count, c ulture, and sensitivity. The wound itself was separately cultured. The burning issue, of course, i s whether or not this subcutaneous tract passes into the knee joint. In order to resolve this, his knee was injected with methylene blue, 5 mL of methylene blue, to see if it will track out through t he "sinus" area. DESCRIPTION OF PROCEDURE: Under general anesthetic, the right leg was prepared and draped in the [facility] sterile fashion. The above findings were noted. Using sharp dissection with a small blade, all the scabby tissue was excised. The triangular area of necrotic skin was excised. Bleeding points were cauterized. A probe was inserted down through the sinus. It did not appear to enter into the knee joint. A needle was inserted into the knee perhaps 2 inches or more away from the area affected [to normal healthy skin], and the knee was aspirated of 10 mL of yellow/orange clear fluid. This was sent for cell count, culture, and sensitivity. Using a small curet, the wound "sinus" was debrided. The wound was then irrigated with triple antib iotic saline. The subcutaneous extension was packed with iodoform gauze. A wound VAC was then reap plied. The patient was returned to the recovery room in stable condition. There were no complications as f ar as is known. Dictated By: ANTHONY CHAVEZ/THOMAS Conf#: [id number] DID#: [id number]
[2017-01-20] MEDS: FENTAnyl 50 MCG/ML VIAL IV PRN ×2 (14:19→14:32)
[2017-01-20] MEDS ORDERED: DEXTROSE 50% 50 ML SYRINGE IV ONE (14:30)
[2017-01-20 17:43] LABS: FLUID APPEARANCE TURBID; FLUID TYPE OTHERS
[2017-01-20 17:51] LABS: FLUID WBC'S 1064 /cmm
[2017-01-20 17:52] LABS: FLUID NEUTROPHILS 63 %; FLUID RBC EST 1+
[2017-01-20 17:53] LABS: FLUID EOSINOPHIL 2 %; FLUID LYMPHOCYTES 22 %; FLUID MONOCYTES 13 %
== END 2017-01-20 15:49 | disposition home or self-care (01) ==
LOC: SDS 08:30
DX: L76.82 Other postprocedural complications of skin and subcutaneous tissue (principal); Y83.8 Other surgical procedures as the cause of abnormal reaction of the patient, or of later complication, without mention of misadventure at the time of the procedure; E11.9 Type 2 diabetes mellitus without complications
CPT/HCPCS: 11042; 80048; 82962; 84450; 84460; 85610; 85730; 87070; 87075; 89050; J0131; J1100; J2175; J2250; J2270; J2405; J2710; J3010; J3370; J7120

== ENCOUNTER → 2017-01-25 | Outpatient (CLI) | payer BC ==
[~2017-01-25] MED LIST changes: -ASPI-781 PO
--- NOTE | 2017-01-25 13:19 | PN ---
Date/Time of Note Date/Time of Note DATE: 01/25/17 TIME: 13:06 Outpatient Progress Note Chief Complaint Wound check status post surgery. HPI 56-year-old male presents today for wound check status post exploration of wound area, debridement of necrotic tissue, packing of subcutaneous cavity with iodoform gauze performed on 01/20/2017. Patient is status post right total knee replacement on 12/23/2016. Suffered blistering to the distal medial border of surgical wound. Tissue became necrotic. Underwent debridement on 01/20/2017. Patient denies any complaints status post debridement. Denies any fever, chills or malaise. No chest pain/tightness. No calf pain or shortness of breath. Had wound VAC placed after surgery. Patient did have issue with wound VAC over the weekend. Applied additional table surrounding wound VAC to alleviate any air seal issues. Presents today for wound check. Patient is up and ambulating normally. Range of motion continues to improve. Review of Systems Const: No Fever, no chills, no Fatigue, normal appetite, no diaphoresis. Resp: No SOB, no wheezing, no chest pain. CV: No chest pain, no palpitaions, no GO. Physical Exam Temperature is 98.8, blood pressure 134/85, heart rate is 91, weight is 192 pounds, height is 6 feet. General Appearance: well-developed, well-nourished, in no acute distress. Right knee: Gait is normal and nonantalgic on exam. No assisted ambulatory device. Normal flexion and extension up to around 120. After removal of wound VAC, no discharge or leaking fluid. No blue staining from methylene blue that was injected during surgery into the knee joint. This will confirm that there is no leakage from the knee joint or sinus tract. No discharge seen on packing. Erythema surrounding surgical wound. No tenderness to palpation on exam. No calf pain. No lower extremity swelling. Labs: -Joint fluid analysis that was performed on the day of surgery is negative for signs of infection or bacteria. Report is in [facility]. -Wound culture that was also taken on the day of surgery is positive for pseudomonas aeruginosa. Sensitivities are present on report. Report is in [facility]. Allergies Coded Allergies: No Known Allergy (Unverified , 01/20/17) Assessment/Plan * Wound VAC removed today. * Wound was cleaned with Betadine swabs. Xeroform gauze placed over wound, Mepilex placed over Xeroform and then wrapped with Kerlix. Keep region dry. * Prior to dress change and cleaning of wound, wound culture was obtained and sent to lab. * Dr. Ham was present during exam and also performed joint aspiration for repeat joint fluid analysis for second confirmation. * Dr. Ham will be contacting infectious disease physician regarding appropriate/optimal antibiotics status post tissue debridement with positive Pseudomonas organism on culture. Once confirmation of antibiotics is determined , prescription will be called into pharmacy. No joint infection. * Dr. Ham states that patient may continue with therapy as long as wound remains covered, dry and clean. * Patient will follow up on 01/28/2017 for repeat evaluation. Review of labs if available. * Patient continues with off and on pain that can be severe at times. Repeat prescription of [place] 10/325 mg 1 tab p.o. every 8 hours as needed severe pain only #45 tablets provided today with no refill. Patient also having some insomnia since the surgery and Restoril was not effective. 30 day supply of Ambien 5 mg nightly as needed for insomnia provided for patient #30 tablets with no refill. Dr. Ham was present for examination and agrees with plan. Medications Home Meds Active Scripts Amoxicillin* (Amoxicillin*) 500 Mg Cap, 500 MG PO TID for 10 Days, CAP Prov:STEVEN POOLE MD 01/18/17 Reported Medications Insulin Aspart* (Novolog Insulin Pen*) 100 Unit/Ml Soln, 0 SC .SLIDING SCALE AC , EA PT HAS A PUMP 01/20/17 Gabapentin* (Gabapentin*) 100 Mg Capsule, 100 MG PO BID, #60 CAP 12/26/16 Hydrocodone/Acetaminophen ([place] 10-325 Tablet) 1 Each Tablet, 1 EACH PO Q4H, TAB 12/26/16 Insulin Aspart* (Novolog Insulin Pen*) 100 Unit/Ml Soln, 57 UNIT SC WITH BREAKFAST, EA 12/26/16 Discontinued Reported Medications Aspirin* (Ecotrin*) 325 Mg Tablet., 325 MG PO BID, TAB 12/26/16 Discontinued Scripts Amoxicillin* (Amoxicillin*) 500 Mg Cap, 500 MG PO TID for 7 Days, CAP Prov:TYLER STAPLES MD 12/26/16 JANINA CONTEH PA-C January 25, 2017 13:16
== END | disposition home or self-care (01) ==
LOC: HKI 11:49
DX: Z47.89 Encounter for other orthopedic aftercare (principal); Z96.651 Presence of right artificial knee joint
CPT/HCPCS: 20610